=== PATIENT | female | born 1970 | race African-American/Black ===

== ENCOUNTER 2023-07-01 16:12 | Inpatient (IN) | payer OTHER ==
[2023-07-01 16:59] LABS: Absolute Lymphocytes (CBC) 1.5 K/uL (0.7-4.9); Hematocrit 40.5 % (36.0-45.0); Lymphocytes % 18.2 % (15.3-44.8); MCV 75.3 fL (80-100); Platelets 340 thou/uL (152-406); RBC Red Blood Cell Count 5.37 M/uL (3.86-4.86)
[2023-07-01 17:14] LABS: Albumin 3.2 g/dL (3.4-5.0); Bilirubin Total 0.7 mg/dL (0.2-1.0); Protein, Total 7.7 g/dL (6.4-8.2)
[2023-07-01 17:15] LABS: Potassium 4.2 mEq/L (3.5-5.1)
--- NOTE | 2023-07-01 18:21 | RAD REPORT ---
EXAM DESCRIPTION: CT - Abdomen Pelvis W Contrast - 07/01/2023 6:00 pm CLINICAL HISTORY: Abdominal pain COMPARISON: none. TECHNIQUE: Computed axial tomography of the abdomen pelvis was obtained. 100 cc Isovue-300 was admin istered intravenously. Oral contrast was not requested which limits evaluation of bowel and appendix All CT scans are performed using dose optimization technique as appropriate and may include automated exposure control or mA/KV adjustment according to patient size. FINDINGS: Some images are degraded by patient motion artifact Left lobe of the liver is prominent. The spleen, pancreas, adrenal and left kidney appear unremarkable. Small right renal cyst There is no evidence of diverticulitis. A normal appendix Hysterectomy. No adnexal mass A moderate hiatal hernia. The wall of several loops of jejunum appear thickened Marked osteoarthritis right hip Air within the vagina IMPRESSION: Thickening of the wall of several loops of jejunum may indicate inflammation Air within the vagina can be insignificant. Infection can also result in this appearance
[2023-07-01] MEDS ORDERED: ONDANSETRON 4 MG/2 ML VIAL ONE ×2 (18:34→22:44)
[2023-07-01] MEDS ORDERED: KETOROLAC 30 MG/ML INJ ONE (18:38)
[2023-07-01] MEDS ORDERED: METOCLOPRAMIDE 10 MG/2mL INJ ONE (19:04)
[2023-07-01] MEDS ORDERED: DIPHENHYDRAMINE 50 MG/ML VIAL ONE (19:04)
--- NOTE | 2023-07-01 19:53 | ER ---
Nurse's Notes [facility] Name: Korina Nolen Age: 52 yrs Sex: Female : 1970 Arrival Date: 07/01/2023 Time: 16:12 Bed 13 Private MD: Diagnosis: Intractable nausea and vomiting;Hypotension Presentation: 07/01 16:21 Chief complaint: EMS states: abdominal pain, nausea, vomiting and diarrhea x1day. cp4 Coronavirus screen: Client denies travel out of the [place] in the last 14 days. At this time, the client does not indicate any symptoms associated with coronavirus-19. Ebola Screen: Patient negative for fever greater than or equal to 101.5 degrees Fahrenheit, and additional compatible Ebola Virus Disease symptoms Patient denies exposure to infectious person. Patient denies travel to an Ebola-affected area in the 21 days before illness onset. No symptoms or risks identified at this time. Initial Sepsis Screen: Does the patient meet any 2 criteria? No. Patient's initial sepsis screen is negative. Does the patient have a suspected source of infection? No. Patient's initial sepsis screen is negative. Risk Assessment: Do you want to hurt yourself or someone else? Patient reports no desire to harm self or others. Onset of symptoms was July 01, 2023. 16:21 Method Of Arrival: EMS: [facility] 16:21 Acuity: JULIANA 3 cp4 Triage Assessment: 16:24 General: Appears in no apparent distress. Pain: Complains of pain in abdomen. 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 - Social history:: Smoking status: Patient denies any tobacco usage or history of. Screenin:28 [facility] ED Fall Risk Assessment (Adult) History of falling in the last 3 months, cp4 including since admission No falls in past 3 months (0 pts) Confusion or Disorientation No (0 pts) Intoxicated or Sedated No (0 pts) Impaired Gait No (0 pts) Mobility Assist Device Used No (0 pt) Altered Elimination No (0 pt) Score/Fall Risk Level 0 - 2 = Low Risk Oriented to surroundings, Maintained a safe environment, Educated pt \T\ family on fall prevention, incl call for assistance when getting out of bed, Assessed \T\ reinforced patient's understanding of fall precautions, Hourly rounding (assess needs \T\ fall precautionary measures) done. Abuse screen: Denies threats or abuse. Nutritional screening: No deficits noted. Tuberculosis screening: No symptoms or risk factors identified. Assessment: 16:28 General: Appears in no apparent distress. Behavior is calm, cooperative, appropriate cp4 for age. GI: Reports diarrhea, nausea, vomiting. Vital Signs: 16:10 BP 101 / 87; Pulse 80; Resp 18; Pulse Ox 100% ; cp4 16:21 BP 101 / 87; Pulse 80; Resp 18; Pulse Ox 100% ; cp4 17:30 BP 96 / 83; Pulse 79; Resp 18; Pulse Ox 96% ; cp4 18:30 BP 111 / 73; Pulse 76; Resp 18; Pulse Ox 97% ; cp4 19:30 BP 130 / 89; Pulse 83; Resp 18; Pulse Ox 97% ; cp4 20:30 BP 130 / 89; Pulse 83; Resp 18; Pulse Ox 98% ; cp4 ED Course: 16:16 Patient arrived in ED. ms3 16:16 Jose Waite DO is Attending Physician. ms3 16:18 Radiology exam delayed due to IV insertion attempt and/or patient not having nj appropriate IV at this time. 16:18 Radiology exam delayed due to lab results not completed at this time. (BUN/Creatinine). nj 16:18 Radiology exam delayed due to test not completed at this time. nj 16:21 Maria De Jesus Sparks is Primary Nurse. cp4 16:24 Triage completed. cp4 16:24 Arm band placed on right wrist. Patient placed in the treatment room, on a stretcher. cp4 16:28 Bed in low position. Call light in reach. Side rails up X 1. Provided Education on: cp4 abdominal pain, nausea, vomiting, and diarrhea. 16:28 Maintain EMS IV. Dressing intact. Good blood return noted. Site clean \T\ dry. Gauge \T\ cp 4 site: 20G L wrist. 17:10 Radiology exam delayed due to lab results not completed at this time. (BUN/Creatinine). nj 17:55 Attending Physician role handed off by Jose Waite DO ms3 17:55 Kelton Salazar MD is Attending Physician. ms3 18:01 CT Abd/Pelvis - IV Contrast Only In Process Unspecified. EDMS 19:52 Gretel Vance MD is Hospitalizing Provider. rt 22:00 No provider procedures requiring assistance completed. Patient admitted, IV remains in km8 place. Administered Medications: 18:42 Drug: Ondansetron IVP 4 mg IVP once; over 2 minutes Route: IVP; Site: left wrist; cp4 20:50 Follow up: Response: No adverse reaction cp4 18:42 Drug: Ketorolac IVP 15 mg IVP once Route: IVP; Site: left wrist; cp4 20:50 Follow up: Response: No adverse reaction cp4 19:08 Drug: metoCLOPramide IVP 10 mg IVP once; over 1 to 2 minutes Route: IVP; Site: left cp4 wrist; 20:50 Follow up: Response: No adverse reaction cp4 19:08 Drug: diphenhydrAMINE IVP 25 mg IVP once Route: IVP; Site: left wrist; cp4 20:50 Follow up: Response: No adverse reaction cp4 20:02 Drug: Promethazine IVP 12.5 mg IVP once Route: IVP; Site: left wrist; cp4 20:50 Follow up: Response: No adverse reaction cp4 Medication: 16:28 VIS not applicable for this client. cp4 Outcome: 19:52 Decision to Hospitalize by Provider. rt 22:00 Admitted to ER Hold. Please see [facility] for further documentation. km8 22:00 Condition: stable 22:00 Instructed on the need for admit, Demonstrated understanding of instructions, 07/02 01:13 Patient left the ED. km8 Signatures: Dispatcher [employer] EDMS Richy Barragan Marcus, DO DO ms3 Kelton Salazar MD MD rt Maria De Jesus Sparks cp4 Oxana Chan, DONG RN km8
--- NOTE | 2023-07-01 19:53 | EDPHYS ---
Physician Documentation [facility] Name: Korina Nolen Age: 52 yrs Sex: Female : 1970 Arrival Date: 07/01/2023 Time: 16:12 Bed 13 Private MD: ED Physician Kelton Salazar HPI: 07/01 16:38 This 52 yrs old Black Female presents to ER via EMS with complaints of Abdominal Pain. ms3 16:38 52-year-old female presents to the emergency department for right lower quadrant ms3 abdominal pain that has been ongoing for 1 day. Patient endorses nausea, vomiting, diarrhea. Patient states her pain is currently a 9/10. EMS notes patient's initial blood pressure 72/43 with a blood glucose of 125. Patient's temperature was measured at 97.9. EMS administered IV Tylenol of and Zofran in route.. 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 - Social history:: Smoking status: Patient denies any tobacco usage or history of. ROS: 16:38 Constitutional: Negative for fever, and chills. Neck: Negative for injury, pain, and ms3 swelling, Cardiovascular: Negative for chest pain, and palpitations. Respiratory: Negative for shortness of breath, cough, wheezing, and pleuritic chest pain, 16:38 MS/Extremity: Negative for injury and deformity, Skin: Negative for injury, rash, and discoloration, Neuro: Negative for headache, weakness, numbness, tingling. 16:38 Abdomen/GI: Positive for abdominal pain, nausea, vomiting, and diarrhea, Exam: 16:38 Constitutional: This is a well developed, well nourished patient who is awake, alert, ms3 and in no acute distress. Head/Face: Normocephalic, atraumatic. Chest/axilla: Normal chest wall appearance and motion. Nontender with no deformity. Cardiovascular: Regular rate and rhythm with a normal S1 and S2. No gallops, murmurs, or rubs. Normal PMI, no JVD. No pulse deficits. Respiratory: Lungs have equal breath sounds bilaterally, clear to auscultation and percussion. No rales, rhonchi or wheezes noted. No increased work of breathing, no retractions or nasal flaring. Abdomen/GI: Soft, non-tender, with normal bowel sounds. No distension or tympany. No guarding or rebound. No evidence of tenderness throughout. Skin: Warm, dry with normal turgor. Normal color with no rashes, no lesions, and no evidence of cellulitis. MS/ Extremity: Pulses equal, no cyanosis. Neurovascular intact. Full, normal range of motion. Vital Signs: 16:10 BP 101 / 87; Pulse 80; Resp 18; Pulse Ox 100% ; cp4 16:21 BP 101 / 87; Pulse 80; Resp 18; Pulse Ox 100% ; cp4 17:30 BP 96 / 83; Pulse 79; Resp 18; Pulse Ox 96% ; cp4 18:30 BP 111 / 73; Pulse 76; Resp 18; Pulse Ox 97% ; cp4 19:30 BP 130 / 89; Pulse 83; Resp 18; Pulse Ox 97% ; cp4 20:30 BP 130 / 89; Pulse 83; Resp 18; Pulse Ox 98% ; cp4 MDM: 16:16 Patient medically screened. ms3 16:40 Differential diagnosis: appendicitis, bowel obstruction, non-specific abd pain. ms3 17:54 Transition of care: After a detail discussion of the patient's case, care is ms3 transferred to Kelton Salazar MD. 20:18 Data reviewed: vital signs, nurses notes, lab test result(s), radiologic studies. rt Consideration of Admission/Observation Patient was admitted/placed on observation. Management of patient was discussed with the following: Hospitalist: Agrees to admit. I considered the following discharge prescriptions or medication management in the emergency department Medications were administered in the Emergency Department. See MAR. Independent interpretation of the following test(s) in the Emergency Department CT Scan: My interpretation is No bowel obstruction syndrome interpretation of CT scan images. Counseling: I had a detailed discussion with the patient and/or guardian regarding the historical points, exam findings, and any diagnostic results supporting the discharge/admit diagnosis, lab results, radiology results, the need for further work-up and treatment in the hospital. 07/01 16:17 Order name: CBC with Diff; Complete Time: 17:21 ms3 07/01 16:17 Order name: CMP; Complete Time: 17:21 ms3 07/01 16:17 Order name: Lipase; Complete Time: 17:21 ms3 07/01 21:38 Order name: Urinalysis w/ reflexes EDMS 07/01 21:38 Order name: CBC with Automated Diff EDMS 07/01 21:38 Order name: CBC with Automated Diff EDMS 07/01 21:38 Order name: Comprehensive Metabolic Panel EDMS 07/01 21:38 Order name: Comprehensive Metabolic Panel EDMS 07/01 21:38 Order name: Magnesium EDMS 07/01 21:38 Order name: Magnesium EDMS 07/01 16:17 Order name: CT Abd/Pelvis - IV Contrast Only; Complete Time: 18:25 ms3 07/01 16:17 Order name: IV Saline Lock; Complete Time: 16:36 ms3 07/01 16:17 Order name: Labs collected and sent; Complete Time: 16:36 ms3 Administered Medications: 18:42 Drug: Ondansetron IVP 4 mg IVP once; over 2 minutes Route: IVP; Site: left wrist; cp4 20:50 Follow up: Response: No adverse reaction cp4 18:42 Drug: Ketorolac IVP 15 mg IVP once Route: IVP; Site: left wrist; cp4 20:50 Follow up: Response: No adverse reaction cp4 19:08 Drug: metoCLOPramide IVP 10 mg IVP once; over 1 to 2 minutes Route: IVP; Site: left cp4 wrist; 20:50 Follow up: Response: No adverse reaction cp4 19:08 Drug: diphenhydrAMINE IVP 25 mg IVP once Route: IVP; Site: left wrist; cp4 20:50 Follow up: Response: No adverse reaction cp4 20:02 Drug: Promethazine IVP 12.5 mg IVP once Route: IVP; Site: left wrist; cp4 20:50 Follow up: Response: No adverse reaction cp4 Disposition Summary: 07/01/23 19:52 Hospitalization Ordered Notes: Hospitalization Status: Observation rt Provider: Gretel Vance rt Condition: Stable rt Problem: new rt Symptoms: have improved rt Bed/Room Type: Standard rt Location: Telemetry/MedSurg (observation)(07/02/23 00:19) rv1 Room Assignment: 220(07/02/23 00:19) rv1 Diagnosis - Intractable nausea and vomiting rt - Hypotension rt Forms: - Medication Reconciliation Form rt - SBAR form rt - Leadership Thank You Letter rt Signatures: Dispatcher [employer] EDMS Jose Waite, DO DO ms3 Kelton Salazar MD MD rt Tereza Carr rv1 Maria De Jesus Sparks cp4 Corrections: (The following items were deleted from the chart) 20:57 19:52 Telemetry/MedSurg (observation) rt rv1 20:57 19:52 rt rv1 07/02 00:19 07/01 20:57 [facility] ER HOLD rv1 rv1 07/02 00:19 07/01 20:57 ERHOLD- rv1 rv1
[2023-07-01] MEDS ORDERED: PROMETHAZINE INJ 25 MG/ML AMP ONE (19:59)
[2023-07-01] MEDS ORDERED: D5.45NS W/KCL 20MEQ 1,000 ML IV ONE (22:43)
[2023-07-01] MEDS ORDERED: Oxycodone HCl/Acetaminophen 5/325 MG TAB ONE (22:43)
[2023-07-01] MEDS: D5.45NS W/KCL 20MEQ 1,000 ML IV SCH (22:50)
[2023-07-01] MEDS: ONDANSETRON 4 MG/2 ML VIAL IV PRN (22:50)
[2023-07-01] MEDS: Oxycodone HCl/Acetaminophen 5/325 MG TAB PO PRN (23:00)
--- NOTE | 2023-07-02 00:01 | P.HP ---
Patient History Date of Service: 07/01/23 Reason for admission: Intractable nausea and vomiting History of Present Illness: 52-year-old female with a history of schizophrenia and opioid addiction was brought to the ED with acute episode of nausea, vomiting and diarrhea. She also complains of right lower quadrant pain that started today. Patient reports up to 25 episodes of bilious emesis and nonbloody watery diarrhea. Abdominal pain is nonradiating and associated with cramping. When EMS arrived her blood pressure was 72/43, BP improved with 1 L bolus. Initial BP in the ED was 101/87 and patient was given Reglan, Benadryl, Toradol and Zofran but continues to have bilious emesis. Her sisters were at bedside and stated that patient is addicted to oxycodone which patient confirmed. They would like to start her on treatment for substance abuse. She currently takes 10 mg of oxycodone every 4 hours which she states she has been taking for the last 6 to 9 months. Apparently if patient runs out of her medications quicker than expected she start tomorrow morning to buy oxycodone on the street. She ran out of her prescription 2 days ago but she is not due for new prescription for the next 10 days. Currently she complains of right hip pain and she is quite restless and irritable with some runny nose. CT abdomen and pelvis is negative for any acute finding. Labs are unremarkable. Allergies No Known Allergies Allergy (Unverified 07/01/23 22:23) Review of Systems 10-point ROS is otherwise unremarkable Physical Examination - Vital Signs Blood Pressure: 101/87 Pulse: 80 Respirations: 16 Pulse Ox (%): 97 - Physical Exam General: Alert, Oriented x3, Mild distress HEENT: Atraumatic, Normocephalic, PERRLA, Mucous membr. moist/pink, EOMI Neck: Supple, JVD not distended Respiratory: Clear to auscultation bilaterally, Normal air movement Cardiovascular: Regular rate/rhythm, Normal S1 S2 Gastrointestinal: Hyperactive, Tenderness Musculoskeletal: No swelling, No erythema, No tenderness Integumentary: No rashes Neurological: Normal gait, Normal speech, Normal strength at 5/5 x4 extr, Sensation intact - Studies Laboratory Data (last 24 hrs) 07/01/23 07/01/23 16:34 16:34 WBC 8.30 Hgb 13.2 Hct 40.5 Plt Count 340 Sodium 138 Potassium 4.2 BUN 17 Creatinine 0.97 Glucose 132 H Total Bilirubin 0.7 AST 26 ALT 14 Alkaline Phosphatase 70 Lipase 38 Assessment and Plan - Plan Intractable nausea and vomiting Hypotension, resolved Acute opioid withdrawal Opioid addiction Microcytosis History of schizophrenia Plan Continue IV fluid maintenance, antiemetics and PPI N.p.o. and advance diet as tolerated Oxycodone 10 mg every 4 hours Consult social servises to assist with substance abuse placement - Advance Directives Does patient have a Living Will: No Does patient have a Durable POA for Healthcare: No
[2023-07-02] MEDS ORDERED: SODIUM CHLORIDE 0.9% 10ML INJ IV PRN (00:06)
[2023-07-02 00:25] VITALS: BMI 22.1
[2023-07-02 01:35] VITALS: O2SAT 98
[2023-07-02 05:32] LABS: Absolute Lymphocytes (CBC) 2.3 K/uL (0.7-4.9); Hematocrit 39.2 % (36.0-45.0); MCV 74.5 fL (80-100); MPV 8.3 fL (7.6-11.3); Platelets 361 thou/uL (152-406); RBC Red Blood Cell Count 5.27 M/uL (3.86-4.86)
[2023-07-02 05:45] LABS: Albumin 3.6 g/dL (3.4-5.0); Bilirubin Total 0.7 mg/dL (0.2-1.0); Magnesium 2.2 mg/dL (1.6-2.4); Potassium 3.4 mEq/L (3.5-5.1); Protein, Total 8.3 g/dL (6.4-8.2)
[2023-07-02] MEDS: POTASSIUM CL SA 10 MEQ TAB PO ONE (09:46)
[2023-07-02] MEDS: PANTOPRAZOLE 40 MG INJ IVP SCH (09:46)
[2023-07-02 10:17] LABS: Specific Gravity 1.017 (1.005-1.030); Urine Bacteria <20 /HPF (<20); Urine Bilirubin NEGATIVE (Negative); Urine Blood Trace (Negative); Urine Clarity Extremely Turbid (Clear); Urine Color Light-Yellow (Yellow); Urine Glucose NEGATIVE (Negative); Urine Mucus 1+ /HPF (None Seen); Urine Protein NEGATIVE (Negative); Urine Urobilinogen Normal (Normal)
[2023-07-02] MEDS: HALOPERIDOL LACT 5 MG/ML INJ IV PRN (17:49)
[2023-07-02] MEDS: NICOTINE 21 MG/PAT TD SCH (17:51)
[2023-07-02] MEDS: MORPHINE 2 MG/ML SYR IV ONE (18:26)
[2023-07-02] MEDS: HALOPERIDOL LACT 5 MG/ML INJ IV ONE (18:36)
--- NOTE | 2023-07-02 18:58 | P.PN ---
Subjective Date of Service: 07/02/23 Chief Complaint: Intractable nausea and vomiting Patient tolerated diet. She denies any abdominal pain. She is currently ambulatory. She seems to be exhibiting psychosis with tangential speech and apprehensive stating that she wants to go home. Physical Examination - Vital Signs Temperature: 97.9 F Blood Pressure: 115/94 Pulse: 92 Respirations: 17 Pulse Ox (%): 97 - Physical Exam General: In no apparent distress, Oriented x3 Neck: JVD not distended Respiratory: Clear to auscultation bilaterally, Normal air movement Cardiovascular: No edema, Regular rate/rhythm, Normal S1 S2 Gastrointestinal: Normal bowel sounds, Soft and benign, Non-distended, No tenderness Musculoskeletal: No swelling Integumentary: No rashes, No cyanosis Neurological: Normal strength at 5/5 x4 extr, Other (Talkative, tangential speech.) Assessment And Plan - Plan Intractable nausea and vomiting Hypotension, resolved Acute opioid withdrawal Opioid addiction Microcytosis Schizophrenia with psychotic features Plan Nurse report patient got agitated and mentioned she feels like killing herself. Patient denied any suicidal ideation. She told me she is not suicidal and rather stated she feels like dying. She also stated, she made the same statement when she came to the emergency department very sick and in severe pain and that she does not mean she wants to kill herself. She appears to be exhibiting some psychotic features with tangential speech,, apprehensive and agitated and wants to go home. Patient is due for her Invega injection tomorrow. She received the Invega from [facility] Trial of IV Haldol. IV morphine and oxycodone as needed for pain. Advance diet as tolerated rn medical inpatient services following to provide information for pain management and addiction programs referral. I also discussed with her and her family the need for her to see an orthopedic surgeon to evaluate her for surgical treatment of his severe hip osteoarthritis. Recommending one-to-one watch overnight. [facility] behavioral health evaluation in a.m.
--- NOTE | 2023-07-03 12:58 | P.DS ---
Admission Date: 07/01/23 Discharge Date: 07/03/23 Disposition: ROUTINE DISCHARGE Reason for Admission: Intractable nausea and vomiting Brief History of Present Illness: 52-year-old female with a history of schizophrenia and opioid addiction was brought to the ED with acute episode of nausea, vomiting and diarrhea. She also complained of right lower quadrant pain.. Patient reporeds up to 25 episodes of bilious emesis and nonbloody watery diarrhea. When EMS arrived her blood pressure was 72/43, BP improved with 1 L bolus. Initial BP in the ED was 101/87 and patient was given Reglan, Benadryl, Toradol and Zofran but continued to have bilious emesis. Her sisters were at bedside and stated that patient is addicted to oxycodone which patient confirmed. They would like to start her on treatment for substance abuse. She currently takes 10 mg of oxycodone every 4 hours which she states she has been taking for the last 6 to 9 months. She ran out of her prescription 2 days prior to presentation and 10 days short to the next refill. She has been taking the oxycodone for right hip pain related to osteoarthritis. She has refused orthopedic evaluation for surgery in the past. Patient was hospitalized for further management. Hospital Course: Diagnosis Intractable nausea and vomiting Hypovolemic shock Acute opioid withdrawal Opioid addiction Microcytosis Schizophrenia with psychotic features Hospital course Patient was admitted to the medical floor and treated with supportive measures including IV hydration. She was placed on her home dose oxycodone. Patient's symptoms resolved. Nausea and vomiting resolved, she tolerated liquid and solid diets. Nurse reported on 07/02/2023 patient got agitated and mentioned she feels like killing herself. Patient denied any suicidal ideation to me. She told me she is not suicidal and rather stated she feels like dying and that she made the same comment when she came to the emergency department very sick and in severe pain and that she does not mean she wants to kill herself. She exhibited some psychotic features with tangential speech, was apprehensive and agitated wanting to go home. Patient is due for her Invega injection on 07/03. She receives the Invega from [facility] She was given IV Haldol Also placed on IV morphine and oxycodone as needed for pain. Patient seen and evaluated by [facility] who confirmed patient is not not suicidal and recommended discharge and follow-up at the [facility] office for her Invega dose today. [facility] also offered to refer her to an seafood technology specialist. I also discussed with her and her family the need for her to see an orthopedic surgeon to evaluate her for surgical treatment of his severe hip osteoarthritis. Patient is discharged in the care of family. She is prescribed oxycodone for a few days and advised family that the administration of the oxycodone should be supervised. Vital Signs/Physical Exam: Temp Pulse Resp BP Pulse Ox 98.2 F 95 H 18 110/87 98 07/02/23 20:00 07/02/23 20:00 07/03/23 09:56 07/02/23 20:00 07/03/23 09:56 General: Alert, In no apparent distress, Oriented x3 HEENT: Mucous membr. moist/pink Neck: JVD not distended Respiratory: Clear to auscultation bilaterally, Normal air movement Cardiovascular: No edema, Regular rate/rhythm, Normal S1 S2, No murmurs Gastrointestinal: Normal bowel sounds, Soft and benign, Non-distended, No tenderness Musculoskeletal: No swelling Integumentary: No rashes, No cyanosis Neurological: Normal speech, Normal strength at 5/5 x4 extr, Cranial nerves 3-12 intact Laboratory Data at Discharge: WBC 12.10 thou/uL (4.3-10.9) H 07/02/23 04:47 Hgb 12.9 g/dL (12.0-15.0) 07/02/23 04:47 Hct 39.2 % (36.0-45.0) 07/02/23 04:47 Plt Count 361 thou/uL (152-406) 07/02/23 04:47 Sodium 139 mEq/L (136-145) 07/03/23 08:15 Potassium 4.0 mEq/L (3.5-5.1) D 07/03/23 08:15 BUN 16 mg/dL (7-18) 07/03/23 08:15 Creatinine 0.77 mg/dL (0.55-1.02) 07/03/23 08:15 Glucose 97 mg/dL (74-106) 07/03/23 08:15 Magnesium 2.2 mg/dL (1.6-2.4) 07/02/23 04:47 Total Bilirubin 0.7 mg/dL (0.2-1.0) 07/02/23 04:47 AST 10 U/L (15-37) L 07/02/23 04:47 ALT 17 U/L (13-56) 07/02/23 04:47 Alkaline Phosphatase 70 U/L (45-117) 07/02/23 04:47 Lipase 38 U/L (13-75) 07/01/23 16:34 Home Medications: Naloxone HCl 4 mg NS PRN #1 spray 07/03/23 Oxycodone HCl/Acetaminophen [Oxycodone-Acetaminophen 10-325] 1 each PO TID #15 tab 07/03/23 New Medications: Naloxone HCl 4 mg NS PRN #1 spray Oxycodone HCl/Acetaminophen [Oxycodone-Acetaminophen 10-325] 1 each PO TID #15 tab Physician Discharge Instructions: [facility] will give you referral to see addiction medicine specialist. You will need to see an orthopedic physician to evaluate you for possible surgery for your severe osteoarthritis. Diet: Regular Activity: Ad chuck Followup: NONE,NONE [Primary Care Provider] - Danny Moss MD [OUTSIDE PHYSICIAN] - 1 Week Time spent managing pt's care (in minutes): 36
[2023-07-03 15:57] VITALS: BP 109/75; TEMP 97.4
== END 2023-07-03 13:12 | disposition home or self-care (01) | DRG 896 ==
LOC: ER 16:12 → ERHOLD 21:33 → 2ND 07-02 00:19
PROVIDERS: ADMIT Internal Medicine; ATTEND Internal Medicine
DX: F11.23 Opioid dependence with withdrawal (principal); R57.1 Hypovolemic shock; I95.9 Hypotension, unspecified; F29 Unspecified psychosis not due to a substance or known physiological condition; F20.9 Schizophrenia, unspecified; M16.11 Unilateral primary osteoarthritis, right hip
CPT/HCPCS: 36415; 74177; 80048; 80053; 81001; 83540; 83690; 83735; 84466; 85025; 96374; 96375; 99285; C9113; J1200; J1630; J2270; J2405; J2550; J2765; Q9967

== ENCOUNTER → 2023-07-30 | Emergency (ER) | payer OTHER ==
--- OUTSIDE RECORDS SUMMARY | 2023-07-30 12:11 | XMS REPORT | Continuity of Care Document ---
Author Name Unknown Address [address] [facility] [address] [place] [address] [facility] thconnect Address [address] [facility] [address] [place] [address] Care Team Providers Care Wallcovering Hanger Name Role Phone Unavailable Unavailable Unavailable Encounters Start Date/Time End Date/Time Encounter Type Admission Type Attending Clinicians Care Facility Care Department Encounter ID Source 2023-05-23 17:49:39 2023-05-23 17:49:39 Outpatient SFA SFA [id number] Dewayne Romo 2023-01-08 09:43:41 2023-01-08 09:43:41 Outpatient SFA SFA [id number] Dewayne Romo 2022-12-11 10:42:21 2022-12-11 10:42:21 Outpatient SFA SFA [id number] Dewayne Romo 2022-07-22 17:08:42 2022-07-22 17:08:42 Outpatient SFA SFA [id number] Dewayne Romo Results Test Description Test Time Test Comments Results Result Co mments Source LIPID [id number] 03:43:19* Test Item Value Reference Range Interpretation Comme nts CHOLESTEROL (test code = 2210) 179 MG/DL <200 TRIGLYCERIDES (test code = 2232) 73 MG/DL <150 HDL CHOLESTEROL (test code = 2220) 74 MG/DL >39 CALC LDL CHOL (test code = 2237) 89 MG/DL <100 NOTE: CALCULATED LDL IS BASED ON MARBIN-URIAS METHOD WHICHINCLUDES ADJUSTABLE TRIGLYCERIDE:VLDL CHOLESTEROL RATIO.THIS FACTOR VARIES BY MEASURED TRIGLYCERIDE AND NON-HDLCHOLESTEROL CONCENTRATIONS WITH INCREASED CALCULATED LDL SEENIN HIGHER TRIGLYCERIDE OR LOWER NON-HDL SPECIMENS. FOR MOREINFORMATION, SEE CLIENT ANNOUNCEMENT AT [email or web address] RISK RATIO LDL/HDL (test code = 2237) 1.20 RATIO <3.22 COMPREHENSIVE METABOLIC [id number] 03:43:19* Test Item Value Reference Range Interpretation Comme nts GLUCOSE (test code = 2216) 67 MG/DL 70-99 L BUN (test code = 2207) 10 MG/DL 6-20 CREATININE (test code = 2213) 0.74 MG/DL 0.60-1.30 eGFR (2020 CKD-EPI) (test code = 82275) 97 ML/MIN/1.73 >60 CALC BUN/CREAT (test code = 2234) 14 RATIO 6-28 SODIUM (test code = 2230) 143 MEQ/L 133-146 POTASSIUM (test code = 2227) 4.3 MEQ/L 3.5-5.4 CHLORIDE (test code = 2214) 107 MEQ/L 95-107 CARBON DIOXIDE (test code = 2205) 26 MEQ/L 19-31 CALCIUM (test code = 2208) 9.3 MG/DL 8.5-10.5 PROTEIN, TOTAL (test code = 2228) 7.1 G/DL 6.1-8.3 ALBUMIN (test code = 2200) 4.2 G/DL 3.5-5.2 CALC GLOBULIN (test code = 2240) 2.9 G/DL 1.9-3.7 CALC A/G RATIO (test code = 2233) 1.4 RATIO 1.0-2.6 BILIRUBIN, TOTAL (test code = 2206) 0.2 MG/DL See_Comment [Automated me ssage] The system which generated this result transmitted reference range: <=1.2. The reference range was not used to interpret this result as normal/abnormal. ALKALINE PHOSPHATASE (test code = 2203) 60 U/L 40-133 AST (test code = 2217) 19 U/L 9-40 ALT (test code = 2218) 14 U/L 5-40 HEMOGLOBIN [id number] 01:58:17* Test Item Value Reference Range Interpretation Comme nts HEMOGLOBIN A1c (test code = 68421) 5.3 % 4.2-5.6 CBC W/AUTO DIFF WITH [id number] 01:24:22* Test Item Value Reference Range Interpretation Comme nts WBC (test code = 1001) 10.2 K/UL 3.5-11.0 RBC (test code = 1002) 5.12 M/UL 3.80-5.40 HEMOGLOBIN (test code = 1003) 12.6 G/DL 11.5-15.5 HEMATOCRIT (test code = 1004) 40.4 % 34.0-45.0 MCV (test code = 1005) 78.9 fL 80.0-99.0 L MCH (test code = 1006) 24.6 PG 25.0-33.0 L MCHC (test code = 1007) 31.2 G/DL 31.0-36.0 RDW (test code = 1038) 14.9 % 11.5-15.0 NEUTROPHILS (test code = 1008) 49.7 % LYMPHOCYTES (test code = 1010) 41.3 % MONOCYTES (test code = 1011) 7.2 % EOSINOPHILS (test code = 1012) 1.0 % BASOPHILS (test code = 1013) 0.5 % IMMATURE GRANULOCYTES (test code = 1036) 0.3 % NUCLEATED RBCS (test code = 1065) 0.0 /100 WBC'S See_Comment [Automated messa ge] The system which generated this result transmitted reference range: 0.0. The reference range was not used to interpret this result as normal/abnormal. PLATELET COUNT (test code = 1015) 371 K/UL 130-400 ABSOLUTE NEUTROPHILS (test code = 1066) 5.09 K/UL 1.50-7.50 ABSOLUTE LYMPHOCYTES (test code = 1067) 4.22 K/UL 1.00-4.00 H ABSOLUTE MONOCYTES (test code = 1068) 0.74 K/UL 0.20-1.00 ABSOLUTE EOSINOPHILS (test code = 1040) 0.10 K/UL 0.00-0.50 ABSOLUTE BASOPHILS (test code = 1069) 0.05 K/UL 0.00-0.20 ABS IMMATURE GRANULOCYTES (test code = 1020) 0.03 K/UL 0.00-0.10 ABS NUCLEATED RBCS (test code = 37518) 0.00 K/UL 0.00-0.11 COMPREHENSIVE METABOLIC [id number] 07:58:05* Test Item Value Reference Range Interpretation Comme nts GLUCOSE (test code = 2217) 111 MG/DL 70-99 H BUN (test code = 2207) 11 MG/DL 6-20 CREATININE (test code = 2213) 0.67 MG/DL 0.60-1.30 eGFR (2020 CKD-EPI) (test code = ) 106 ML/MIN/1.73 >60 CALC BUN/CREAT (test code = 2234) 16 RATIO 6-28 SODIUM (test code = 2230) 144 MEQ/L 133-146 POTASSIUM (test code = 2227) 3.9 MEQ/L 3.5-5.4 CHLORIDE (test code = 2214) 107 MEQ/L 95-107 CARBON DIOXIDE (test code = 2205) 25 MEQ/L 19-31 CALCIUM (test code = 2208) 9.3 MG/DL 8.5-10.5 PROTEIN, TOTAL (test code = 2228) 7.2 G/DL 6.1-8.3 ALBUMIN (test code = 2200) 4.2 G/DL 3.5-5.2 CALC GLOBULIN (test code = 2239) 3.0 G/DL 1.9-3.7 CALC A/G RATIO (test code = 2233) 1.4 RATIO 1.0-2.6 BILIRUBIN, TOTAL (test code = 2206) 0.5 MG/DL See_Comment [Automated me ssage] The system which generated this result transmitted reference range: <=1.2. The reference range was not used to interpret this result as normal/abnormal. ALKALINE PHOSPHATASE (test code = 2203) 61 U/L 40-130 AST (test code = 2217) 18 U/L 9-40 ALT (test code = 2218) 18 U/L 5-40 LIPID [id number] 07:58:05* Test Item Value Reference Range Interpretation Comme nts CHOLESTEROL (test code = 2209) 189 MG/DL <200 TRIGLYCERIDES (test code = 223) 79 MG/DL <150 HDL CHOLESTEROL (test code = 0) 79 MG/DL >39 CALC LDL CHOL (test code = 2236) 93 MG/DL <100 NOTE: CALCULATED LDL IS BASED ON MARBIN-URIAS METHOD WHICHINCLUDES ADJUSTABLE TRIGLYCERIDE:VLDL CHOLESTEROL RATIO.THIS FACTOR VARIES BY MEASURED TRIGLYCERIDE AND NON-HDLCHOLESTEROL CONCENTRATIONS WITH INCREASED CALCULATED LDL SEENIN HIGHER TRIGLYCERIDE OR LOWER NON-HDL SPECIMENS. FOR MOREINFORMATION, SEE CLIENT ANNOUNCEMENT AT [email or web address] /CalcLDL-C RISK RATIO LDL/HDL (test code = 2238) 1.18 RATIO <3.22 TSH, THIRD [id number] 06:47:53* Test Item Value Reference Range Interpretation Comme nts TSH, THIRD GENERATION (test code = 2821) 1.930 UIU/ML 0.400-4.100 UNLESS OTHERWISE INDICATED, ALL TESTING PERFORMED [facility] [address] [place] [id number] INSPECTOR REPAIRER SANDSTONE: MARY BOWEN M.D. CLIA NUMBER [id number] [facility] [place]. [id number] HEMOGLOBIN [id number] 03:55:14* Test Item Value Reference Range Interpretation Comme nts HEMOGLOBIN A1c (test code = 36149) 5.5 % 4.2-5.6 CBC W/AUTO DIFF WITH [id number] 03:42:47* Test Item Value Reference Range Interpretation Comme nts WBC (test code = 1001) 6.7 K/UL 3.5-11.0 RBC (test code = 1002) 4.78 M/UL 3.80-5.40 HEMOGLOBIN (test code = 1003) 11.5 G/DL 11.5-15.5 HEMATOCRIT (test code = 1004) 36.1 % 34.0-45.0 MCV (test code = 1005) 75.5 fL 80.0-99.0 L MCH (test code = 1006) 24.1 PG 25.0-33.0 L MCHC (test code = 1007) 31.9 G/DL 31.0-36.0 RDW (test code = 1038) 14.5 % 11.5-15.0 NEUTROPHILS (test code = 1008) 45.7 % LYMPHOCYTES (test code = 1010) 44.7 % MONOCYTES (test code = 1011) 7.5 % EOSINOPHILS (test code = 1012) 1.4 % BASOPHILS (test code = 1013) 0.5 % IMMATURE GRANULOCYTES (test code = 1036) 0.2 % NUCLEATED RBCS (test code = 1065) 0.0 /100 WBC'S See_Comment [Automated messa ge] The system which generated this result transmitted reference range: 0.0. The reference range was not used to interpret this result as normal/abnormal. PLATELET COUNT (test code = 1015) 375 K/UL 130-400 ABSOLUTE NEUTROPHILS (test code = 1066) 3.05 K/UL 1.50-7.50 ABSOLUTE LYMPHOCYTES (test code = 1067) 2.97 K/UL 1.00-4.00 ABSOLUTE MONOCYTES (test code = 1068) 0.50 K/UL 0.20-1.00 ABSOLUTE EOSINOPHILS (test code = 1040) 0.09 K/UL 0.00-0.50 ABSOLUTE BASOPHILS (test code = 1069) 0.03 K/UL 0.00-0.20 ABS IMMATURE GRANULOCYTES (test code = 1020) 0.01 K/UL 0.00-0.10 ABS NUCLEATED RBCS (test code = 81460) 0.00 K/UL 0.00-0.11
--- NOTE | 2023-07-30 12:45 | RAD REPORT ---
EXAM DESCRIPTION: CT - Head Brain Wo Cont - 07/30/2023 12:33 pm CLINICAL HISTORY: Generalized weakness/lethargy COMPARISON: none TECHNIQUE: Computed axial tomography of the head was obtained. IV contrast was not requested. All CT scans are performed using dose optimization technique as appropriate and may include automated exposure control or mA/KV adjustment according to patient size. FINDINGS: An intracranial bleed is not seen The ventricles are normal in caliber No significant hypodense areas within the brain visualized No extra-axial fluid collection is noted. Fluid within the sinuses/ mastoids is not seen IMPRESSION: No acute intracranial abnormality is seen If patient's symptoms persist MRI of the brain would be recommended
[2023-07-30 12:55] LABS: Albumin/Globulin Ratio 0.6 (1.1-1.8); Anion Gap 8.6 mEq/L (5.0-15.0); Bilirubin Direct 0.1 mg/dL (0-0.2); Bilirubin Indirect, Calculated 0.3 mg/dL (0.2-0.8); Bilirubin Total 0.4 mg/dL (0.2-1.0); Globulin 4.8 g/dL (2.3-3.5); Magnesium 2.1 mg/dL (1.6-2.4); Potassium 3.6 mEq/L (3.5-5.1); Protein, Total 7.8 g/dL (6.4-8.2); Troponin High Sensitivity 3.6 pg/mL (<58.9)
[2023-07-30 13:34] LABS: Absolute Basophils 0.1 K/uL (0-0.5); Absolute Lymphocytes (CBC) 2.6 K/uL (0.7-4.9); Absolute Monocytes 0.5 K/uL (0.1-1.3); Absolute Neutrophil 5.6 K/uL (1.8-8.0); Basophils % 1.2 % (0-1.3); Eosinophils % 0.5 % (0-4.4); Hematocrit 40.2 % (36.0-45.0); Lymphocytes % 29.6 % (15.3-44.8); MCH 24.4 pg (27.0-35.0); MCHC 32.3 g/dL (32.0-36.0); MCV 75.5 fL (80-100); MPV 7.8 fL (7.6-11.3); Monocytes % 5.3 % (3.3-12.3); Neutrophils % 63.4 % (41.7-73.7); Nucleated Red Blood Cells % 0.1 % (0-0); Platelets 316 thou/uL (152-406); RBC Red Blood Cell Count 5.32 M/uL (3.86-4.86); Red Cell Distribution Width 14.7 % (12.1-15.2)
--- NOTE | 2023-07-30 13:49 | ER ---
Nurse's Notes [facility] Name: Korina Nolen Age: 52 yrs Sex: Female : 1970 Arrival Date: 07/30/2023 Time: 12:07 Bed 17 Private MD: Diagnosis: Dizziness, ambulatory dysfunction resolved Presentation: 07/29 12:12 Chief complaint: EMS states: Generalized weakness for a couple of days. Ran out of [facility] oxy/gabapentin 2 days ago, takes it for chronic right hip pain. Coronavirus screen: Vaccine status: Patient reports being unvaccinated. Ebola Screen: Patient denies travel to an Ebola-affected area in the 21 days before illness onset. Initial Sepsis Screen: Does the patient meet any 2 criteria? Yes Does the patient have a suspected source of infection? No. Patient's initial sepsis screen is negative. Risk Assessment: Do you want to hurt yourself or someone else? Patient reports no desire to harm self or others. Onset of symptoms was July 28, 2023. 12:12 Method Of Arrival: EMS: [facility] 12:12 Acuity: JULIANA 3 nj Historical: - Allergies: 12:20 No Known Allergies; nj1 - PMHx: 12:20 Chronic hip pain; nj1 - Immunization history:: Client reports having NOT received the Covid vaccine. - Social history:: Smoking status: Patient reports the use of cigarette tobacco products, cigars. Screenin:20 [facility] ED Fall Risk Assessment (Adult) History of falling in the last 3 months, nj including since admission No falls in past 3 months (0 pts) Confusion or Disorientation No (0 pts) Intoxicated or Sedated No (0 pts) Impaired Gait Yes (1 pt) Mobility Assist Device Used Yes (1 pt) Altered Elimination No (0 pt) Score/Fall Risk Level 0 - 2 = Low Risk Oriented to surroundings, Maintained a safe environment, Hourly rounding (assess needs \T\ fall precautionary measures) done. Abuse screen: Denies threats or abuse. Denies injuries from another. Nutritional screening: No deficits noted. Tuberculosis screening: No symptoms or risk factors identified. Assessment: 12:15 General: Appears in no apparent distress. comfortable, Behavior is calm, cooperative, nj appropriate for age. 12:15 Pain: Complains of pain in Hip, right Pain currently is 9 out of 10 on a pain scale. nj1 Neuro: Level of Consciousness is awake, alert, obeys commands, Oriented to person, place, time, situation, Reports weakness generalized. Cardiovascular: Patient's skin is warm and dry. Respiratory: Airway is patent Respiratory effort is even, unlabored. 13:28 Reassessment: Patient appears in no apparent distress at this time. Patient and/or nj1 family updated on plan of care and expected duration. Pain level reassessed. Patient is alert, oriented x 3, equal unlabored respirations, skin warm/dry/pink. Vital Signs: 12:12 BP 120 / 93; Pulse 72; Resp 17; Pulse Ox 95% on R/A; Weight 74.84 kg; Height 5 ft. 9 nj1 in. ; Pain 9/10; 13:27 BP 119 / 78; Pulse 74; Resp 15; Pulse Ox 100% on R/A; Pain 9/10; nj1 12:12 Body Mass Index 24.37 (74.84 kg, 175.26 cm) nj1 12:12 Pain Scale: Adult nj1 13:27 Pain Scale: Adult ms1 ED Course: 12:11 Patient arrived in ED. nj1 12:12 Emy Borges MD is Attending Physician. sp3 12:12 Landy Mcnamara, RN is Primary Nurse. nj1 12:15 Patient has correct armband on for positive identification. Bed in low position. Call nj1 light in reach. Side rails up X 1. 12:15 Provided Education on: call light, fall precautions. Client placed on continuous nj1 cardiac and pulse oximetry monitoring. NIBP monitoring applied. wired sweatband cutter on. 12:20 Triage completed. nj1 12:20 Arm band placed on right wrist. nj1 12:28 Inserted saline lock: 22 gauge in right antecubital area, using aseptic technique. nj1 Blood collected. 12:34 CT Head Brain wo Cont In Process Unspecified. EDMS Administered Medications: No medications were administered Outcome: 13:49 Discharge ordered by . sp3 14:00 Patient left the ED. nj1 Signatures: Dispatcher [employer] EDMS Emy Borges MD MD sp3 Landy Mcnamara, RN RN nj1
--- NOTE | 2023-07-30 13:49 | EDPHYS ---
Physician Documentation [facility] Name: Korina Nolen Age: 52 yrs Sex: Female : 1970 Arrival Date: 07/30/2023 Time: 12:07 Bed 17 Private MD: ED Physician Emy Borges HPI: 07/29 12:50 This 52 yrs old Black Female presents to ER via EMS with complaints of uneasy on feet. sp3 12:50 52-year-old female with a history of chronic hip pain, bipolar disease who presents to sp3 the ED with chief complaint "uneasy on her feet for several days" patient states that symptoms are now resolved. Patient also is requesting a refill for her OxyContin and gabapentin because she "has been able to see her doctor". She denies any other symptoms including headache, current weakness, numbness or tingling, speech changes, memory changes, vision changes or any other neurological symptoms. Remainder of ROS is negative as well. Symptoms are again resolved and patient is now mainly here for medication refill and to "make sure eating is okay".. Historical: - Allergies: 12:20 No Known Allergies; nj1 - PMHx: 12:20 Chronic hip pain; nj1 - Immunization history:: Client reports having NOT received the Covid vaccine. - Social history:: Smoking status: Patient reports the use of cigarette tobacco products, cigars. ROS: 12:51 Constitutional: Negative for fever, chills, and weight loss, Eyes: Negative for injury, sp3 pain, redness, and discharge, ENT: Negative for injury, pain, and discharge, Neck: Negative for injury, pain, and swelling, Cardiovascular: Negative for chest pain, palpitations, and edema, Respiratory: Negative for shortness of breath, cough, wheezing, and pleuritic chest pain, Abdomen/GI: Negative for abdominal pain, nausea, vomiting, diarrhea, and constipation, Back: Negative for injury and pain, : Negative for injury, bleeding, discharge, and swelling, MS/Extremity: Negative for injury and deformity, Skin: Negative for injury, rash, and discoloration, Psych: Negative for depression, anxiety, suicide ideation, homicidal ideation, and hallucinations, Allergy/Immunology: Negative for hives, rash, and allergies, Endocrine: Negative for neck swelling, polydipsia, polyuria, polyphagia, and marked weight changes, Hematologic/Lymphatic: Negative for swollen nodes, abnormal bleeding, and unusual bruising, 12:51 All other systems are negative, Exam: 12:51 Constitutional: This is a well developed, well nourished patient who is awake, alert, sp3 and in no acute distress. Head/Face: Normocephalic, atraumatic. Eyes: Pupils equal round and reactive to light, extra-ocular motions intact. Lids and lashes normal. Conjunctiva and sclera are non-icteric and not injected. Cornea within normal limits. Periorbital areas with no swelling, redness, or edema. ENT: Nares patent. No nasal discharge, no septal abnormalities noted. External auditory canals are clear. Oropharynx with no redness, swelling, or masses, exudates, or evidence of obstruction, uvula midline. Mucous membranes moist. Neck: Trachea midline, no thyromegaly or masses palpated, and no cervical lymphadenopathy. Supple, full range of motion without nuchal rigidity, or vertebral point tenderness. No Meningismus. Chest/axilla: Normal chest wall appearance and motion. Nontender with no deformity. No lesions are appreciated. Cardiovascular: Regular rate and rhythm with a normal S1 and S2. No gallops, murmurs, or rubs. Normal PMI, no JVD. No pulse deficits. Respiratory: Lungs have equal breath sounds bilaterally, clear to auscultation and percussion. No rales, rhonchi or wheezes noted. No increased work of breathing, no retractions or nasal flaring. Abdomen/GI: Soft, non-tender, with normal bowel sounds. No distension or tympany. No guarding or rebound. No evidence of tenderness throughout. Back: No spinal tenderness. No costovertebral tenderness. Full range of motion. Skin: Warm, dry with normal turgor. Normal color with no rashes, no lesions, and no evidence of cellulitis. MS/ Extremity: Pulses equal, no cyanosis. Neurovascular intact. Full, normal range of motion. Neuro: Awake and alert, GCS 15, oriented to person, place, time, and situation. Cranial nerves II-XII grossly intact. Motor strength 5/5 in all extremities. Sensory grossly intact. Cerebellar exam normal. Normal gait. Psych: Awake, alert, with orientation to person, place and time. Behavior, mood, and affect are within normal limits. 13:23 ECG was reviewed by the Attending Physician. EKG demonstrates normal sinus rhythm at 68 sp3 bpm with normal intervals, normal QRS, normal axis, nonspecific ST/T-segment's without evidence of acute ischemia. Vital Signs: 12:12 BP 120 / 93; Pulse 72; Resp 17; Pulse Ox 95% on R/A; Weight 74.84 kg; Height 5 ft. 9 nj1 in. ; Pain 9/10; 13:27 BP 119 / 78; Pulse 74; Resp 15; Pulse Ox 100% on R/A; Pain 9/10; nj1 12:12 Body Mass Index 24.37 (74.84 kg, 175.26 cm) nj1 12:12 Pain Scale: Adult nj1 13:27 Pain Scale: Adult nj1 MDM: 12:13 Patient medically screened. sp3 13:48 Data reviewed: vital signs, lab test result(s), radiologic studies. ED course: Workup sp3 reviewed and demonstrates no significant abnormality. We will refill gabapentin 800 mg twice daily and discharge patient home safely.. 07/29 12:14 Order name: Basic Metabolic Panel; Complete Time: 13:40 sp3 07/29 12:14 Order name: CBC with Diff; Complete Time: 13:40 sp3 07/29 12:14 Order name: Hepatic Function; Complete Time: 13:40 sp3 07/29 12:14 Order name: Magnesium; Complete Time: 13:40 sp3 07/29 12:14 Order name: Troponin High Sensitivity; Complete Time: 13:40 sp3 07/29 12:14 Order name: CT Head Brain wo Cont; Complete Time: 12:49 sp3 07/29 12:14 Order name: EKG; Complete Time: 12:14 sp3 07/29 12:14 Order name: Cardiac monitoring; Complete Time: 13:27 sp3 07/29 12:14 Order name: EKG - Nurse/Tech; Complete Time: 13:27 sp3 07/29 12:14 Order name: IV Saline Lock; Complete Time: 12:32 sp3 07/29 12:14 Order name: Labs collected and sent; Complete Time: 12:32 sp3 07/29 12:14 Order name: NPO; Complete Time: 13:02 sp3 07/29 12:14 Order name: O2 Per Protocol; Complete Time: 12:21 sp3 07/29 12:14 Order name: O2 Sat Monitoring; Complete Time: 12:21 sp3 07/29 12:55 Order name: Labs - recollect needed: recollect cbc; Complete Time: 13:27 bd Administered Medications: No medications were administered Disposition Summary: 07/30/23 13:49 Discharge Ordered Notes: Location: Home sp3 Condition: Stable sp3 Diagnosis - Dizziness, ambulatory dysfunction resolved sp3 Followup: sp3 - With: Private Physician - When: Upon discharge from the Emergency Department - Reason: Continuance of care Discharge Instructions: - Discharge Summary Sheet sp3 - Dizziness, [id number] sp3 Forms: - Medication Reconciliation Form sp3 - Thank You Letter sp3 - Antibiotic Education sp3 - Prescription Opioid Use sp3 - Patient Portal Instructions sp3 - Leadership Thank You Letter sp3 Prescriptions: - gabapentin 800 mg Oral tablet - take 1 tablet ORAL route every 12 hours; 60 tablet; Refills: 0, Product sp3 Selection Permitted Signatures: Dispatcher [employer] EDLuna Foley Setul, MD MD sp3 Landy Mcnamara RN RN nj1
[2023-07-30 14:32] VITALS: BP 119/78; O2SAT 100
--- NOTE | 2023-07-31 14:26 | EKG ---
Test Date: 2023-07-30 Test Time: 12:48:10 [employer]: EVANGELINA MEASUREMENT RESULTS: Intervals: Rate: 100 GA: 136 QRSD: 96 QT: 358 QTc: 461 [place]: P: 53 GA: 136 QRS: 8 T: 34 INTERPRETIVE STATEMENTS: Normal sinus rhythm Normal ECG Compared to ECG 07/30/2023 12:17:36 Left posterior fascicular block no longer present Myocardial infarct finding no longer present Electronically Signed On 07-31-23 14:23:25 CDT by Nguyễn Kelley
--- NOTE | 2023-07-31 14:26 | EKG ---
Test Date: 2023-07-30 Test Time: 12:17:36 Catalogue Illustrator: EVANGELINA MEASUREMENT RESULTS: Intervals: Rate: 68 VT: 146 QRSD: 82 QT: 410 QTc: 435 [place]: P: VT: 146 QRS: 165 T: 162 INTERPRETIVE STATEMENTS: Normal sinus rhythm Left posterior fascicular block Inferior infarct, age undetermined Abnormal ECG No previous ECG available for comparison Electronically Signed On 07-31-23 14:23:28 CDT by Nguyễn Kelley
== END ==
LOC: ER 12:07
DX: R42 Dizziness and giddiness (principal); G89.29 Other chronic pain; Z72.0 Tobacco use
CPT/HCPCS: 36415; 70450; 80048; 80076; 83735; 84484; 85025; 93005

== ENCOUNTER 2023-08-26 06:33 | Observation (INO) | payer OTHER ==
[2023-08-25 10:32] LABS: Absolute Basophils 0.1 K/uL (0-0.5); Absolute Eosinophils 0.1 K/uL (0-0.5); Absolute Lymphocytes (CBC) 2.5 K/uL (0.7-4.9); Absolute Monocytes 0.6 K/uL (0.1-1.3); Absolute Neutrophil 4.6 K/uL (1.8-8.0); Basophils % 0.9 % (0-1.3); Eosinophils % 0.9 % (0-4.4); Hematocrit 40.2 % (36.0-45.0); Lymphocytes % 32.1 % (15.3-44.8); MCH 24.2 pg (27.0-35.0); MCHC 32.3 g/dL (32.0-36.0); MCV 74.8 fL (80-100); MPV 8.3 fL (7.6-11.3); Monocytes % 7.9 % (3.3-12.3); Neutrophils % 58.2 % (41.7-73.7); Nucleated Red Blood Cells % 0.4 % (0-0); Platelets 249 thou/uL (152-406); RBC Red Blood Cell Count 5.37 M/uL (3.86-4.86)
[2023-08-25 10:33] LABS: Specific Gravity 1.009 (1.005-1.030); Sqamous Epithelial <5 /HPF (None Seen); Urine Bacteria <20 /HPF (<20); Urine Bilirubin NEGATIVE (Negative); Urine Blood Trace (Negative); Urine Clarity Clear (Clear); Urine Color Colorless (Yellow); Urine Culture Reflex Order NOT NEEDED; Urine Glucose NEGATIVE (Negative); Urine Ketones NEGATIVE (Negative); Urine Microscopic Reflex YN ORDER UMIC; Urine Nitrite NEGATIVE (Negative); Urine Protein NEGATIVE (Negative); Urine RBC <5 /HPF (None Seen); Urine Urobilinogen Normal (Normal); Urine WBC <5 /HPF (<5); Urine pH 6.5 (5.0-7.0)
[2023-08-25 10:36] LABS: PT Prothrombin Time 10.3 SECONDS (9.5-12.5); PTT, Activated Partial Thromb 30.5 SECONDS (24.3-36.9); Protime INR 0.93
[2023-08-25 10:49] LABS: Albumin 3.2 g/dL (3.4-5.0); Albumin/Globulin Ratio 0.7 (1.1-1.8); Anion Gap 4.7 mEq/L (5.0-15.0); Bilirubin Total 0.3 mg/dL (0.2-1.0); Globulin 4.5 g/dL (2.3-3.5); Potassium 3.7 mEq/L (3.5-5.1); Protein, Total 7.7 g/dL (6.4-8.2)
--- NOTE | 2023-08-25 11:19 | RAD REPORT ---
EXAM DESCRIPTION: Taylor Portillo (2 Views)08/25/2023 10:27 am CLINICAL HISTORY: Preop for hip arthroplasty COMPARISON: 2010 FINDINGS: The lungs appear clear of acute infiltrate. The heart is normal size The patient's known hiatal hernia is not clearly seen on this exam IMPRESSION: No acute abnormalities displayed
[2023-08-26] MEDS: GABAPENTIN 100 MG CAP ONE (06:38)
[2023-08-26] MEDS: Ringers Lactate 1,000 ML IV ONE ×2 (06:45→10:17)
[2023-08-26] MEDS: Oxycodone HCl/Acetaminophen 5/325 MG TAB ONE (06:52)
[2023-08-26] MEDS: ACETAMINOPHEN 500 MG TAB ONE (06:52)
[2023-08-26] MEDS: CELECOXIB 100 MG CAPSULE ONE (06:52)
[2023-08-26] MEDS: CEFAZOLIN SODIUM 2 GM/VIAL ONE (08:00)
[2023-08-26] MEDS: TRANEXAMIC ACID 1,000 MG/10 ML VIAL IV ONE (08:05)
--- NOTE | 2023-08-26 09:13 | RAD REPORT ---
EXAM DESCRIPTION: RAD - Hip Right 1 View - 08/26/2023 9:06 am CLINICAL HISTORY: RIGHT HIP IN OR COMPARISON: No comparisons FINDINGS: Single intraoperative projection submitted from right hip arthroplasty procedure. Hardware is in expected alignment and positioning.
[2023-08-26] MEDS ORDERED: ONDANSETRON 4 MG/2 ML VIAL IV PRN (09:36)
[2023-08-26] MEDS ORDERED: DOCUSATE NA 100 MG CAP PO PRN (09:36)
--- NOTE | 2023-08-26 09:36 | P.BOP ---
Preoperative diagnosis: right hip arthritis Postoperative diagnosis: same Primary procedure: right total hip arthoplasty Estimated blood loss: 150 ccs Anesthesia: General Complications: None Transferred to: Recovery Room Condition: Good
--- OUTSIDE RECORDS SUMMARY | 2023-08-26 10:49 | XMS REPORT | Continuity of Care Document ---
Author Name Unknown Address [address] [facility] [address] [place] [address] [facility] thconnect Address [address] [facility] [address] [place] [address] Care Team Providers Care Code Official Name Role Phone Unavailable Unavailable Unavailable Encounters Start Date/Time End Date/Time Encounter Type Admission Type Attending [facility] Care Facility Care Department Encounter ID Source 2023-05-23 17:49:39 2023-05-23 17:49:39 Outpatient SFA [facility] [id number] Dewayne Romo 2023-01-08 09:43:41 2023-01-08 09:43:41 Outpatient SFA [facility] [id number] Dewayne Romo 2022-12-11 10:42:21 2022-12-11 10:42:21 Outpatient [facility] SFA [id number] Dewayne Romo 2022-07-22 17:08:42 2022-07-22 17:08:42 Outpatient SFA [facility] [id number] Dewayne Romo Results Test Description Test Time Test Comments Results Result Co mments Source LIPID [id number] 03:43:19* Test Item Value Reference Range Interpretation [...] SPECIMENS. FOR MOREINFORMATION, SEE CLIENT ANNOUNCEMENT AT [email or web address] /[email or web address]-[email or web address] RISK RATIO LDL/HDL (test code = 2237) 1.20 RATIO <3.22 COMPREHENSIVE METABOLIC [id number] 03:43:19* Test Item Value Reference Range Interpretation Comme nts GLUCOSE (test code = 2216) 67 MG/DL 70-99 L BUN (test code = 2207) 10 MG/DL 6-20 CREATININE (test code = 2213) 0.74 MG/DL 0.60-1.30 eGFR (2020 CKD-EPI) (test code = 64562) 97 ML/MIN/1.73 >60 CALC BUN/CREAT (test code [...] G/DL 3.5-5.2 CALC GLOBULIN (test code = 0) 2.9 G/DL 1.9-3.7 CALC A/G RATIO (test [...] code = 2218) 14 U/L 5-40 HEMOGLOBIN [id number] 01:58:17* Test Item Value Reference Range Interpretation Comme nts HEMOGLOBIN A1c (test code = 63842) 5.3 % 4.2-5.6 CBC W/AUTO DIFF WITH [id number] 01:24:22* Test Item Value Reference Range Interpretation [...] 0.00-0.10 ABS NUCLEATED RBCS (test code = 86721) 0.00 K/UL 0.00-0.11 COMPREHENSIVE METABOLIC [id number] 07:58:05* Test Item Value Reference Range Interpretation [...] code = 2218) 18 U/L 5-40 LIPID [id number] 07:58:05* Test Item Value Reference Range Interpretation Comme nts CHOLESTEROL (test code = 2210) 189 MG/DL <200 TRIGLYCERIDES (test code = 2232) 79 MG/DL <150 HDL CHOLESTEROL (test code = 2220) 79 MG/DL >39 CALC LDL CHOL (test code = 2236) 93 MG/DL <100 NOTE: CALCULATED LDL IS BASED ON MARBIN-URIAS METHOD WHICHINCLUDES ADJUSTABLE TRIGLYCERIDE:VLDL CHOLESTEROL RATIO.THIS FACTOR VARIES BY MEASURED TRIGLYCERIDE AND NON-HDLCHOLESTEROL CONCENTRATIONS WITH INCREASED CALCULATED LDL SEENIN HIGHER TRIGLYCERIDE OR LOWER NON-HDL SPECIMENS. FOR MOREINFORMATION, SEE CLIENT ANNOUNCEMENT AT [email or web address] /CalcLDL-C RISK RATIO LDL/HDL (test code = 2238) 1.18 RATIO <3.22 TSH, THIRD [id number] 06:47:53* Test Item Value Reference Range Interpretation Comme nts TSH, THIRD GENERATION (test code = 2821) 1.930 UIU/ML 0.400-4.100 UNLESS OTHERWISE INDICATED, ALL TESTING PERFORMED [facility] [address] [employer] [address] [place] [id number] SUPERVISOR DRYING: MARY BOWEN M.D. CLIA NUMBER [id number] [facility] [place] [id number] HEMOGLOBIN [id number] 03:55:14* Test Item Value Reference Range Interpretation Comme nts HEMOGLOBIN A1c (test code = 98892) 5.5 % 4.2-5.6 CBC W/AUTO DIFF WITH [id number] 03:42:47* Test Item Value Reference Range Interpretation [...] = 1065) 0.0 /100 WBC'S See_Comment [Automated [employer]a ge] The system which generated this result [...] 0.00-0.10 ABS NUCLEATED RBCS (test code = 79908) 0.00 K/UL 0.00-0.11
[2023-08-26 10:52] LABS: Hematocrit 38.6 % (36.0-45.0); Hemoglobin 12.3 g/dL (12.0-15.0)
[2023-08-26 11:46] VITALS: O2SAT 96
[2023-08-26 12:27] VITALS: BMI 24.5
--- NOTE | 2023-08-26 15:28 | OP ---
Date of Procedure: 08/26/2023 Surgeon: Dillon Larsen MD Preoperative Diagnosis: Right hip severe arthritic change. Postoperative Diagnosis: Right hip severe arthritic change. Procedure: Right total hip arthroplasty using the Tom system. Estimated Blood Loss: 150 cc. Complication: There were no complications. Specimens: No pathology specimens sent. Indication For Operation: Patient is a 52-year-old female who has had debilitating pain related to h er right hip. She came to see me in my office where x-rays demonstrated an extremely destructive hip arthritic change. She does have limited motion with internal and external rotation and pain with an y movement of the hip. Risks, benefits, and alternatives of different methods of treating this have been discussed with the patient. She states she understands things as presented and wishes to procee d. Description Of Procedure: The patient was taken to the operating room. Spinal anesthesia was obtain ed. After this, general anesthesia was then obtained by the Anesthesia staff. She was then rolled l eft side down and right hip was then prepped and draped in the usual sterile fashion for the procedur e. Following this, a standard posterior lateral incision was taken down carefully through skin and s oft tissues. Meticulous hemostasis being maintained using Bovie electrocautery. This leads down to the fascia. The fascia was encountered. A small stab wound was made in the fascia. Gluteal tendon was palpated to ensure it was in correct position. Incision was then carried up until near the tip o f the greater trochanter. It was then curved gently backward and the gluteus juan daniel muscles were th en spread gently using finger pressure. The sciatic nerve was palpated and protected as the Charnley was placed. Then, some degree of fatty bursal tissue was removed. The external rotators and capsul e were then taken down and tagged for later repair. This leads to hip. The hip was then dislocated. Standard neck cut was made. The femoral head was then sized. The soft tissue was removed from wit hin the acetabulum. This includes the labrum. Following this, it was slightly deepened and then arcelia med in standard fashion. When there was good bleeding bone and it appeared to be reamed appropriatel y, the cup was then placed in standard fashion. It appears to have a good fit. After this, box cutt er was used as well as canal finding reamer to lateralize the stem and it was then broached up to the appropriate size. After this, an x-ray was taken which demonstrated the acetabulum could be a littl e more compressed but the femoral stem appeared to be correctly sized and it also feels correctly siz ed. After this, the broach was removed and the liner was placed and then impacted adding some more c ompression to the acetabulum. After this, the standard stem was then placed to the appropriate depth that appears to have good mechanical properties. It was then trialed with a 0 which healed stabilit y to full flexion, full adduction and internal rotation to at least 40 to 45 degrees. The standard w as selected and final ball was then tapped in place. It was then relocated and it was stable in abov e areas. After this, the wound was copiously irrigated and the external rotators and capsule were th en repaired back to the bone via bone tunnels. The wound was again irrigated. Skin was closed using Vicryl sutures and the skin was stapled. The patient was placed in an Aquacel dressing, awakened, a nd taken to the recovery room. There were no complications. SE/MODL Voice ID: [id number] Report ID: [id number]
[2023-08-26] MEDS: INVEGA SUSTENNA 234 MG/1.5 ML IM SCH (15:30)
[2023-08-26] MEDS: CEFAZOLIN 1 GM in NA CHLORIDE 0.9% 50 ML IVPB SCH (16:26)
[2023-08-26 17:24] LABS: Hematocrit 37.5 % (36.0-45.0); Hemoglobin 11.8 g/dL (12.0-15.0)
[2023-08-26] MEDS: ACETAMINOPHEN 325 MG TABLET PO PRN (20:43)
[2023-08-27] MEDS: HYDROCODONE/APAP 7.5/325 MG TAB PO PRN (00:11)
[2023-08-27 07:39] LABS: Absolute Lymphocytes (CBC) 2.1 K/uL (0.7-4.9); Absolute Monocytes 1.1 K/uL (0.1-1.3); Absolute Neutrophil 7.2 K/uL (1.8-8.0); Basophils % 0.5 % (0-1.3); Eosinophils % 0.4 % (0-4.4); Hematocrit 34.7 % (36.0-45.0); Hemoglobin 11.3 g/dL (12.0-15.0); Lymphocytes % 20.1 % (15.3-44.8); MCH 23.9 pg (27.0-35.0); MCHC 32.5 g/dL (32.0-36.0); MCV 73.6 fL (80-100); MPV 7.6 fL (7.6-11.3); Monocytes % 10.6 % (3.3-12.3); Neutrophils % 68.4 % (41.7-73.7); Nucleated Red Blood Cells % 0.1 % (0-0); Platelets 220 thou/uL (152-406); RBC Red Blood Cell Count 4.71 M/uL (3.86-4.86); Red Cell Distribution Width 14.7 % (12.1-15.2)
--- NOTE | 2023-08-27 07:49 | P.CNS ---
Date of Consult: 08/27/23 Reason for Consult: medical mangement Requesting Physician: Dillon Larsen History of Present Illness: Hospital medicine consult 52-year-old female status post right total hip arthoplasty Attending Provider: Dillon Larsen on 08/26/23 past medical history history of schizophrenia, opioid addiction, substance abuse, pain control as needed analgesia, no reported fever, encourage incentive spirometer when awake. PT eval for DME/gait training. Laboratory evaluation microcytic anemia hemoglobin 11.3 hematocrit 34.7, UA from 08/24 from UA. Normal UA. Chest x-ray 08/24 IMPRESSION: No acute abnormalities displayed, noted hiatal hernia. Postop hip x-ray 08/25 FINDINGS: Single intraoperative projection submitted from right hip arthroplasty procedure. Hardware is in expected alignment and positioning. Allergies No Known Allergies Allergy (Verified 08/26/23 07:13) Home Medications: Dextroamphetamine/Amphetamine [Dextroamp-Amphetamin 10 mg Tab] 10 mg PO DAILY 08/25/23 Gabapentin 800 mg PO TIDP PRN 08/25/23 Oxycodone HCl/Acetaminophen [Oxycodone-Acetaminophen 10-325] 1 each PO TIDP PRN 08/25/23 - Past Medical/Surgical History Diabetic: No -: bipolar -: arthritis -: adhd -: hernia -: adenoidectomy - Family History Mother Medical History: Heart disease, Diabetes - Social History Alcohol use: No CD- Drugs: No Caffeine use: Yes Place of Residence: Home Review of Systems Per HPI Physical Examination Temp Pulse Resp BP Pulse Ox 98.5 F 79 14 105/50 L 95 08/27/23 07:49 08/27/23 07:49 08/27/23 07:49 08/27/23 07:49 08/27/23 07:49 General: Alert, In no apparent distress, Oriented x3 HEENT: Atraumatic, Normocephalic Neck: Supple, 2+ carotid pulse no bruit Respiratory: Normal air movement, Diminished Cardiovascular: Normal pulses, Regular rate/rhythm Capillary refill: <2 Seconds Gastrointestinal: Normal bowel sounds, Soft and benign Musculoskeletal: Other (Surgical dressing right hip clean dry and intact) Neurological: Normal speech, Normal affect Laboratory Data (last 24 hrs) 08/27/23 08/26/23 08/26/23 07:29 17:11 10:30 WBC 10.50 Hgb 11.3 L 11.8 L 12.3 Hct 34.7 L 37.5 38.6 Plt Count 220 Conclusions/Impression: Assessment plan Hospital medicine consult 52-year-old female status post right total hip arthoplasty Attending Provider: Dillon Larsen on 08/26/23 pain control as needed analgesia, no reported fever, encourage incentive spirometer when awake. PT eval for DME/gait training. UA from 08/24 from UA. Normal UA. Chest x-ray 08/24 IMPRESSION: No acute abnormalities displayed, noted hiatal hernia. Postop hip x-ray 08/25 FINDINGS: Single intraoperative projection submitted from right hip arthroplasty procedure. Hardware is in expected alignment and positioning. services manager consult for discharge history of schizophrenia, History opioid addiction substance abuse, Monitor withdrawals, as needed analgesia Resume appropriate Microcytic anemia Laboratory evaluation microcytic anemia hemoglobin 11.3 hematocrit 34.7, Trend H&H Full code DVT Lovenox Diet cardiac Disposition, home with outpatient physical therapy Critical Care: No Time Spent Managing Pts care (In Minutes): 55
--- NOTE | 2023-08-27 07:49 | P.PN ---
Subjective Date of Service: 08/27/23 Hospital medicine consult 52-year-old female status post right total hip arthoplasty Dillon Larsen on 08/26/23 pain control as needed analgesia, no reported fever, encourage incentive spirometer when awake. PT eval for DME/gait training. park services specialist consult for RW, BSC, HH w PT requested for DC planning General: Alert, In no apparent distress, Oriented x3 HEENT: Atraumatic, Normocephalic Neck: Supple, 2+ carotid pulse no bruit Respiratory: Normal air movement, Diminished Cardiovascular: Normal pulses, Regular rate/rhythm Capillary refill: <2 Seconds Gastrointestinal: Normal bowel sounds, Soft and benign Musculoskeletal: Other (Surgical dressing right hip clean dry and intact) Neurological: Normal speech, Normal affect Review of Systems per HPI Physical Examination - Vital Signs Temperature: 98.5 F Blood Pressure: 105/50 Pulse: 79 Respirations: 14 Pulse Ox (%): 95 - Studies Laboratory Data (last 24 hrs) 08/27/23 08/26/23 08/26/23 07:29 17:11 10:30 WBC 10.50 Hgb 11.3 L 11.8 L 12.3 Hct 34.7 L 37.5 38.6 Plt Count 220 Assessment And Plan - Plan Assessment plan status post right total hip arthoplasty Attending Provider: Dillon Larsen on 08/26/23 pain control as needed analgesia, no reported fever, encourage incentive spirometer when awake. PT eval for DME/gait training. UA from 08/24 from UA. Normal UA. Chest x-ray 08/24 IMPRESSION: No acute abnormalities displayed, noted hiatal hernia. Postop hip x-ray 08/25 FINDINGS: Single intraoperative projection submitted from right hip arthroplasty procedure. Hardware is in expected alignment and positioning. park services specialist consult for discharge planning history of schizophrenia, History opioid addiction substance abuse, Monitor withdrawals, as needed analgesia Resume appropriate Microcytic anemia Laboratory evaluation microcytic anemia hemoglobin 11.3 hematocrit 34.7, Trend H&H Full code DVT Lovenox Diet cardiac Discharge Plan: Home - Code Status/Comfort Care Code Status: Full Code Critical Care: No Time Spent Managing PTS Care (In Minutes): 35
[2023-08-27 07:54] LABS: Albumin 2.6 g/dL (3.4-5.0); Anion Gap 5.7 mEq/L (5.0-15.0); Phosphorus 3.8 mg/dL (2.5-4.9); Potassium 3.7 mEq/L (3.5-5.1)
[2023-08-27] MEDS: ENOXAPARIN 40 MG/0.4 ML SQ SCH (08:14)
[2023-08-27] MEDS: INVEGA SUSTENNA 234 MG/1.5 ML IM SCH (08:41)
[2023-08-27 15:39] VITALS: BP 105/50; TEMP 98.5
== END 2023-08-27 14:28 | disposition home health service (06) ==
LOC: OR 06:33 → 4TH 10:45
PROVIDERS: ADMIT Orthopaedic Surgery; ATTEND Orthopaedic Surgery
PROC: 0SR90JA Replacement of Right Hip Joint with Synthetic Substitute, Uncemented, Open Approach (ICD-10-PCS; principal; 2023-08-26 07:00)
DX: M16.11 Unilateral primary osteoarthritis, right hip (principal); D64.9 Anemia, unspecified; F11.20 Opioid dependence, uncomplicated; F20.9 Schizophrenia, unspecified
CPT/HCPCS: 85025 ×2; 81001; 36415 ×2; 85610; 88304; 88311; 85730; 80069; 85018 ×2; 85014 ×2; 80053; 71046; 73501; 97110 ×2; 97116 ×2; 97161; 97530 ×2; 27130; C1776 ×4; J1650; J7120 ×2; J0690 ×3; G0378; G0379

== ENCOUNTER 2023-09-05 12:17 | Emergency (ER) | payer OTHER ==
--- OUTSIDE RECORDS SUMMARY | 2023-09-05 12:20 | XMS REPORT | Continuity of Care Document ---
Author Name Unknown Address [address] [facility] [address] [place] [address] [facility] thconnect Address [address] [facility] [address] [place] [address] Care Team Providers Care Telephone Solicitor Name Role Phone Unavailable Unavailable Unavailable Encounters Start Date/Time End Date/Time Encounter Type Admission Type Attending [facility] Care Facility Care Department Encounter ID Source 2023-05-23 17:49:39 2023-05-23 17:49:39 Outpatient SFA [facility] [id number] Dewayne Romo 2023-01-08 09:43:41 2023-01-08 09:43:41 Outpatient SFA [facility] [id number] Dewayne Romo 2022-12-11 10:42:21 2022-12-11 10:42:21 Outpatient [facility] SFA [id number] Dewayne Romo 2022-07-22 17:08:42 2022-07-22 17:08:42 Outpatient SFA [facility] 0313 Dewayne Romo Results Test Description Test Time Test Comments Results Result Co mments Source LIPID [id number] 03:43:19* Test Item Value Reference Range Interpretation [...] SPECIMENS. FOR MOREINFORMATION, SEE CLIENT ANNOUNCEMENT AT [email or web address] /CalcLDL-C RISK RATIO LDL/HDL (test code = 2237) 1.20 RATIO <3.22 COMPREHENSIVE METABOLIC [id number] 03:43:19* Test Item Value Reference Range Interpretation Comme nts GLUCOSE (test code = 2216) 67 MG/DL 70-99 L BUN (test code = 2207) 10 MG/DL 6-20 CREATININE (test code = 2213) 0.74 MG/DL 0.60-1.30 eGFR (2020 CKD-EPI) (test code = 91999) 97 ML/MIN/1.73 >60 CALC BUN/CREAT (test code [...] code = 2218) 14 U/L 5-40 HEMOGLOBIN [id number] 01:58:17* Test Item Value Reference Range Interpretation Comme nts HEMOGLOBIN A1c (test code = 79421) 5.3 % 4.2-5.6 CBC W/AUTO DIFF WITH [id number] 01:24:22* Test Item Value Reference Range Interpretation [...] 0.00-0.10 ABS NUCLEATED RBCS (test code = 23335) 0.00 K/UL 0.00-0.11 COMPREHENSIVE METABOLIC [id number] 07:58:05* Test Item Value Reference Range Interpretation [...] code = 2218) 18 U/L 5-40 LIPID [id number] 07:58:05* Test Item Value Reference Range Interpretation [...] SPECIMENS. FOR MOREINFORMATION, SEE CLIENT ANNOUNCEMENT AT [email or web address] /CalcLDL-C RISK RATIO LDL/HDL (test code = 2238) 1.18 RATIO <3.22 TSH, THIRD [id number] 06:47:53* Test Item Value Reference Range Interpretation Comme nts TSH, THIRD GENERATION (test code = 2821) 1.930 UIU/ML 0.400-4.100 UNLESS OTHERWISE INDICATED, ALL TESTING PERFORMED [facility] [employer] [address] [place] [address] [employer] REPRESENTATIVE: MARY BOWEN M.D. CLIA NUMBER [id number] [facility] [place]. [id number] HEMOGLOBIN [id number] 03:55:14* Test Item Value Reference Range Interpretation Comme nts HEMOGLOBIN A1c (test code = 81374) 5.5 % 4.2-5.6 CBC W/AUTO DIFF WITH [id number] 03:42:47* Test Item Value Reference Range Interpretation [...] = 1065) 0.0 /100 WBC'S See_Comment [Automated [employer] ge] The system which generated this result [...] 0.00-0.10 ABS NUCLEATED RBCS (test code = 56282) 0.00 K/UL 0.00-0.11
--- NOTE | 2023-09-05 14:38 | ER ---
Nurse's Notes [facility] Name: Korina Nolen Age: 52 yrs Sex: Female : 1970 Arrival Date: 09/05/2023 Time: 12:17 Bed 20 Private MD: Diagnosis: Chronic pain, not elsewhere classified Presentation: 09/04 12:43 Chief complaint: Patient states: right hip pain from recent hip replacement. States she cp4 is out of medication and Dr. Larsen's office told her to come in. Coronavirus screen: Client denies travel out of the [place] in the last 14 days. At this time, the client does not indicate any symptoms associated with coronavirus-19. Ebola Screen: Patient negative for fever greater than or equal to 101.5 degrees Fahrenheit, and additional compatible Ebola Virus Disease symptoms Patient denies exposure to infectious person. Patient denies travel to an Ebola-affected area in the 21 days before illness onset. No symptoms or risks identified at this time. Initial Sepsis Screen: Does the patient meet any 2 criteria? No. Patient's initial sepsis screen is negative. Does the patient have a suspected source of infection? No. Patient's initial sepsis screen is negative. Risk Assessment: Do you want to hurt yourself or someone else? Patient reports no desire to harm self or others. Onset of symptoms was September 05, 2023. 12:43 Method Of Arrival: EMS: [facility] cp4 12:43 Acuity: JULIANA 4 cp4 Triage Assessment: 12:46 General: Appears uncomfortable, Behavior is calm, cooperative, appropriate for age. cp4 Pain: Complains of pain in right hip Pain currently is 9 out of 10 on a pain scale. Musculoskeletal: Reports pain in right hip. 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 - Infectious Disease History:: Denies. CDIFF, C. Auris, ESBL, MRSA (w/in 1 year), VRE (w/in 1 year), TB, . - Social history:: Smoking status: Patient denies any tobacco usage or history of. Screenin:48 [facility] ED Fall Risk Assessment (Adult) History of falling in the last 3 months, cp4 including since admission No falls in past 3 months (0 pts) Confusion or Disorientation No (0 pts) Intoxicated or Sedated No (0 pts) Impaired Gait No (0 pts) Mobility Assist Device Used Yes (1 pt) Altered Elimination No (0 pt) Score/Fall Risk Level 0 - 2 = Low Risk Oriented to surroundings, Maintained a safe environment, Assessed \T\ reinforced patient's understanding of fall precautions, Hourly rounding (assess needs \T\ fall precautionary measures) done. Abuse screen: Denies threats or abuse. Nutritional screening: No deficits noted. Tuberculosis screening: No symptoms or risk factors identified. Assessment: 12:48 Reassessment: No changes from previously documented assessment. cp4 14:35 Reassessment: Patient states she wants to go home. Provider notified. cp4 Vital Signs: 12:43 BP 107 / 93; Pulse 83; Resp 18; Temp 97.8; Pulse Ox 99% ; Weight 72.12 kg; Height 5 ft. cp4 8 in. ; Pain 9/10; 14:46 BP 116 / 97; Pulse 79; Resp 18; Pulse Ox 99% ; cp4 12:43 Body Mass Index 24.18 (72.12 kg, 172.72 cm) cp4 12:43 Pain Scale: Adult cp4 ED Course: 12:29 Patient arrived in ED. hb 12:30 Maria De Jesus Sparks is Primary Nurse. cp4 12:30 Dalton Robles MD is Attending Physician. bo1 12:34 Client placed on continuous cardiac and pulse oximetry monitoring. NIBP monitoring hb applied. Pulse ox on. NIBP on. 12:46 Triage completed. cp4 12:46 Arm band placed on right wrist. Patient placed in an exam room, on a stretcher. cp4 12:48 Bed in low position. Call light in reach. Side rails up X 1. cp4 14:46 Provided Education on: chronic pain. cp4 14:46 No provider procedures requiring assistance completed. Patient did not have IV access cp4 during this emergency room visit. Administered Medications: No medications were administered Medication: 12:48 VIS not applicable for this client. cp4 Outcome: 14:38 Discharge ordered by . bo1 14:46 Discharged to home ambulatory, cp4 14:46 Condition: stable 14:46 Discharge instructions given to patient, Instructed on discharge instructions, follow up and referral plans. Demonstrated understanding of instructions, follow-up care, 14:47 Patient left the ED. cp4 Signatures: Nina Alford RN RN hb Potter, Christina cp4 aDlton Robles MD MD bo1
--- NOTE | 2023-09-05 14:38 | EDPHYS ---
Physician Documentation [facility] Name: Korina Nolen Age: 52 yrs Sex: Female : 1970 Arrival Date: 09/05/2023 Time: 12:17 Bed 20 Private MD: ED Physician Dalton Robles HPI: 09/04 14:22 This 52 yrs old Black Female presents to ER via EMS with complaints of Post Surgical bo1 Pain. 14:22 Pain to the right hip since surgery. Severity of symptoms: in the emergency department bo1 the symptoms are unchanged Pt states she had hydrocodone and oxycodone but cannot get any more meds from her PCP. The patient has experienced similar episodes in the past. Pt called an ambulance due to need for transport. 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 - Infectious Disease History:: Denies. CDIFF, C. Auris, ESBL, MRSA (w/in 1 year), VRE (w/in 1 year), TB, . - Social history:: Smoking status: Patient denies any tobacco usage or history of. ROS: 14:24 MS/extremity: Positive for pain, \\T\\ the right hip, Negative for swelling, tingling, bo1 Exam: 14:24 Constitutional: This is a well developed, well nourished patient who is awake, alert, bo1 and in no acute distress. MS/ Extremity: Pulses equal, no cyanosis. Neurovascular intact. "Pain" to the RLE at the hip. 14:24 Musculoskeletal/extremity: Circulation is intact in all extremities. Sensation intact. Calves: are non-tender, Vital Signs: 12:43 BP 107 / 93; Pulse 83; Resp 18; Temp 97.8; Pulse Ox 99% ; Weight 72.12 kg; Height 5 ft. cp4 8 in. ; Pain 9/10; 14:46 BP 116 / 97; Pulse 79; Resp 18; Pulse Ox 99% ; cp4 12:43 Body Mass Index 24.18 (72.12 kg, 172.72 cm) cp4 12:43 Pain Scale: Adult cp4 MDM: 12:51 Patient medically screened. bo1 14:25 Differential Diagnosis Pain control issue.. ED course: Unable to reach the pt's bo1 orthopedic office. Messages being left by pt are unanswered and text to pt's orthopedic MD is unanswered.. 14:38 ED course: Pt will have to obtain meds from her physicians and not the ER. bo1 Administered Medications: No medications were administered Disposition Summary: 09/05/23 14:38 Discharge Ordered Notes: Location: Home bo1 Problem: chronic bo1 Symptoms: are unchanged bo1 Condition: Stable bo1 Diagnosis - Chronic pain, not elsewhere classified bo1 Followup: bo1 - With: Private Physician - When: Upon discharge from the Emergency Department - Reason: Discharge Instructions: - Discharge Summary Sheet bo1 - Chronic Pain, Adult bo1 Forms: - Medication Reconciliation Form bo1 - Antibiotic Education bo1 - Prescription Opioid Use bo1 - Patient Portal Instructions bo1 - Leadership Thank You Letter bo1 Signatures: Maria De Jesus Sparks cp4 Dalton Robles MD MD bo1
[2023-09-05 15:16] VITALS: BP 116/97; TEMP 97.8; O2SAT 99
== END 2023-09-05 14:47 | disposition home or self-care (01) ==
LOC: ER 12:17
DX: G89.29 Other chronic pain (principal); Z98.890 Other specified postprocedural states

== ENCOUNTER 2023-11-04 16:08 | Emergency (ER) | payer OTHER ==
--- OUTSIDE RECORDS SUMMARY | 2023-11-04 16:12 | XMS REPORT | Continuity of Care Document ---
Author Name Unknown Address [address] [facility] [address] [place] [address] [facility] thconnect Address [address] [facility] [address] [place] [address] Care Team Providers Care Vp Scientific Affairs Name Role Phone Unavailable Unavailable Unavailable Encounters Start Date/Time End Date/Time Encounter Type Admission Type Attending [facility] Facility Care Department Encounter ID Source 2023-05-23 17:49:39 2023-05-23 17:49:39 Outpatient [facility] [id number] Dewayne Romo 2023-01-08 09:43:41 2023-01-08 09:43:41 Outpatient [facility] [id number] Dewayne Romo 2022-12-11 10:42:21 2022-12-11 10:42:21 Outpatient [facility]FA [id number] Dewayne Romo 2022-07-22 17:08:42 2022-07-22 17:08:42 Outpatient [facility] [id number] Dewayne Romo Results Test Description Test Time Test Comments Results Result Co mments Source LIPID [id number] 03:43:19* Test Item Value Reference Range Interpretation [...] SPECIMENS. FOR MOREINFORMATION, SEE CLIENT ANNOUNCEMENT AT [email or web address] RISK RATIO LDL/HDL (test code = 2237) 1.20 RATIO <3.22 COMPREHENSIVE METABOLIC [id number] 03:43:19* Test Item Value Reference Range Interpretation Comme nts GLUCOSE (test code = 2216) 67 MG/DL 70-99 L BUN (test code = 2207) 10 MG/DL 6-20 CREATININE (test code = 2213) 0.74 MG/DL 0.60-1.30 eGFR (2020 CKD-EPI) (test code = 25811) 97 ML/MIN/1.73 >60 CALC BUN/CREAT (test code [...] code = 2218) 14 U/L 5-40 HEMOGLOBIN [id number] 01:58:17* Test Item Value Reference Range Interpretation Comme nts HEMOGLOBIN A1c (test code = 45192) 5.3 % 4.2-5.6 CBC W/AUTO DIFF WITH [id number] 01:24:22* Test Item Value Reference Range Interpretation [...] 0.00-0.10 ABS NUCLEATED RBCS (test code = 41769) 0.00 K/UL 0.00-0.11 COMPREHENSIVE METABOLIC [id number] 07:58:05* Test Item Value Reference Range Interpretation [...] code = 2218) 18 U/L 5-40 LIPID [id number] 07:58:05* Test Item Value Reference Range Interpretation [...] SPECIMENS. FOR MOREINFORMATION, SEE CLIENT ANNOUNCEMENT AT [email or web address] /[email or web address] RISK RATIO LDL/HDL (test code = 2238) 1.18 RATIO <3.22 TSH, THIRD [id number] 06:47:53* Test Item Value Reference Range Interpretation Comme nts TSH, THIRD GENERATION (test code = 2821) 1.930 UIU/ML 0.400-4.100 UNLESS OTHERWISE INDICATED, ALL TESTING PERFORMED [facility] [employer] [address] [place] [id number] LOW VISION THERAPIST: MARY BOWEN M.D. CLIA NUMBER [id number] [facility] [place]. [id number] HEMOGLOBIN [id number] 03:55:14* Test Item Value Reference Range Interpretation Comme nts HEMOGLOBIN A1c (test code = 19809) 5.5 % 4.2-5.6 CBC W/AUTO DIFF WITH [id number] 03:42:47* Test Item Value Reference Range Interpretation [...] = 1065) 0.0 /100 WBC'S See_Comment [Automated [employer] ge] The system which generated this result [...] 0.00-0.10 ABS NUCLEATED RBCS (test code = 90899) 0.00 K/UL 0.00-0.11
[2023-11-04] MEDS ORDERED: ASPIRIN 81 MG CHEWABLE TABLET ONE (17:03)
[2023-11-04] MEDS ORDERED: HYDROCODONE/APAP 7.5/325 MG TAB ONE (17:04)
[2023-11-04 17:12] LABS: Absolute Basophils 0.1 K/uL (0-0.5); Absolute Eosinophils 0.1 K/uL (0-0.5); Absolute Lymphocytes (CBC) 4.4 K/uL (0.7-4.9); Absolute Monocytes 0.6 K/uL (0.1-1.3); Absolute Neutrophil 4.4 K/uL (1.8-8.0); Basophils % 0.5 % (0-1.3); Eosinophils % 1.2 % (0-4.4); Hemoglobin 13.9 g/dL (12.0-15.0); Lymphocytes % 46.5 % (15.3-44.8); MCH 24.9 pg (27.0-35.0); MCHC 32.4 g/dL (32.0-36.0); MCV 76.9 fL (80-100); MPV 8.9 fL (7.6-11.3); Neutrophils % 45.8 % (41.7-73.7); Platelets 357 thou/uL (152-406); RBC Red Blood Cell Count 5.59 M/uL (3.86-4.86)
[2023-11-04 17:18] LABS: PT Prothrombin Time 11.5 SECONDS (9.4-12.5); Protime INR 1.05
--- NOTE | 2023-11-04 17:29 | RAD REPORT ---
EXAM DESCRIPTION: Taylor Single View11/04/2023 5:19 pm CLINICAL HISTORY: Chest pain COMPARISON: August 2023 FINDINGS: The lungs appear clear of acute infiltrate. The heart is normal size IMPRESSION: No acute abnormalities displayed
--- NOTE | 2023-11-04 17:32 | RAD REPORT ---
EXAM DESCRIPTION: RAD - Hip Right 2 View - 11/04/2023 5:19 pm CLINICAL HISTORY: Right hip pain FINDINGS: Right hip prosthesis without evidence of loosening. No fracture or dislocation Osteoporosis
[2023-11-04 18:51] LABS: Albumin 3.7 g/dL (3.4-5.0); Albumin/Globulin Ratio 0.8 (1.1-1.8); Alkaline Phosphatase 65 U/L (45-117); Anion Gap 4.8 mEq/L (5.0-15.0); BUN Blood Urea Nitrogen 13 mg/dL (7-18); Bicarbonate 26 mEq/L (21-32); Bilirubin Total 0.3 mg/dL (0.2-1.0); Globulin 4.8 g/dL (2.3-3.5); Glomerular Filtration Rate 92 ml/min (=/>90); Glucose Level 92 mg/dL (74-106); Lipase 72 U/L (13-75); Magnesium 2.1 mg/dL (1.6-2.4); NT PRO-BNP 67 pg/mL (<125); Potassium 3.8 mEq/L (3.5-5.1); Protein, Total 8.5 g/dL (6.4-8.2); Sodium Level 139 mEq/L (136-145); Troponin High Sensitivity 3.2 pg/mL (<58.9)
[2023-11-04 18:53] LABS: ALT/SGPT < 14 U/L (13-56); AST/SGOT < 10 U/L (15-37); Bilirubin Direct < 0.2 mg/dL (0-0.2); Bilirubin Indirect, Calculated 0.1 mg/dL (0.2-0.8)
--- NOTE | 2023-11-04 19:03 | ER ---
Nurse's Notes [facility] Name: Korina Nolen Age: 53 yrs Sex: Female : 1970 Arrival Date: 11/04/2023 Time: 16:08 Bed 13 Private MD: Diagnosis: Chest pain, unspecified;Pain in right hip;Nausea Presentation: 11/03 16:15 Chief complaint: EMS states: Generalized pain: chest, back, abdomen and right hip pain. nj1 Had last pain pill two days ago and hurting since. Had r hip surgery on August. 16:15 Coronavirus screen: Vaccine status: Patient reports being unvaccinated. Ebola Screen: nj1 Patient denies travel to an Ebola-affected area in the 21 days before illness onset. Initial Sepsis Screen: Does the patient meet any 2 criteria? No. Patient's initial sepsis screen is negative. Does the patient have a suspected source of infection? No. Patient's initial sepsis screen is negative. Risk Assessment: Do you want to hurt yourself or someone else? Patient reports no desire to harm self or others. Onset of symptoms was October 2023. 16:15 Method Of Arrival: EMS: [facility] 16:15 Acuity: JULIANA 3 nj Historical: - Allergies: 18:09 No Known Allergies; nj1 - PMHx: 18:09 chronic hip pain; Bipolar disorder; Schizophrenia; nj1 - Immunization history:: Adult Immunizations unknown. - Infectious Disease History:: Denies. - Social history:: Smoking status: Patient reports the use of cigarette tobacco products, smokes one pack cigarettes per day. Screenin:15 [facility] ED Fall Risk Assessment (Adult) History of falling in the last 3 months, nj1 including since admission No falls in past 3 months (0 pts) Confusion or Disorientation No (0 pts) Intoxicated or Sedated No (0 pts) Impaired Gait Yes (1 pt) Mobility Assist Device Used No (0 pt) Altered Elimination No (0 pt) Score/Fall Risk Level 0 - 2 = Low Risk Oriented to surroundings, Maintained a safe environment, Hourly rounding (assess needs \T\ fall precautionary measures) done. Abuse screen: Denies threats or abuse. Denies injuries from another. Nutritional screening: No deficits noted. Tuberculosis screening: No symptoms or risk factors identified. Assessment: 16:15 General: Appears in no apparent distress. comfortable, Behavior is calm, cooperative, nj1 appropriate for age. 16:15 Pain: Complains of pain in chest and abdomen and right hip Pain currently is 8 out of nj1 10 on a pain scale. Neuro: Level of Consciousness is awake, alert, obeys commands, Oriented to person, place, time, situation. Cardiovascular: Reports chest pain, Patient's skin is warm and dry. Respiratory: Airway is patent Respiratory effort is even, unlabored. GI: Reports lower abdominal pain, upper abdominal pain, Patient currently denies nausea. Musculoskeletal: Reports pain in back and right hip. 17:38 Reassessment: Patient appears in no apparent distress at this time. Patient and/or nj1 family updated on plan of care and expected duration. Pain level reassessed. Patient is alert, oriented x 3, equal unlabored respirations, skin warm/dry/pink. 18:20 Reassessment: Patient appears in no apparent distress at this time. Patient and/or nj1 family updated on plan of care and expected duration. Pain level reassessed. Patient is alert, oriented x 3, equal unlabored respirations, skin warm/dry/pink. 19:22 Reassessment: Patient appears in no apparent distress at this time. Patient and/or jb4 family updated on plan of care and expected duration. Pain level reassessed. Patient is alert, oriented x 3, equal unlabored respirations, skin warm/dry/pink. Vital Signs: 16:15 BP 115 / 91; Pulse 87; Resp 16; Pulse Ox 99% on R/A; Weight 74.84 kg; Height 5 ft. 9 nj1 in. ; Pain 8/10; 18:20 BP 113 / 60; Pulse 74; Resp 18; Pulse Ox 98% ; nj1 16:15 Body Mass Index 24.37 (74.84 kg, 175.26 cm) nj1 16:15 Pain Scale: Adult [facility] ED Course: 16:15 Maintain EMS IV. Dressing intact. Site clean \T\ dry. Gauge \T\ site: 20 L FA. nj 1 16:15 Patient has correct armband on for positive identification. Bed in low position. Call al1 light in reach. Provided Education on: Call light, fall precautions. 16:20 Patient arrived in ED. [facility] 16:20 Marine Das PA-C is PHCP. sb4 16:20 Jose Waite DO is Attending Physician. sb4 16:40 Landy Mcnamara, RN is Primary Nurse. nj1 17:21 XRAY Chest (1 view) In Process Unspecified. EDMS 17:21 Hip Right 2 View XRAY In Process Unspecified. EDMS 17:51 Triage completed. nj1 18:08 Arm band placed on. nj1 18:08 Client placed on continuous cardiac and pulse oximetry monitoring. NIBP monitoring nj1 applied. surveillance monitor on. 19:06 Report given to Maria De Jesus UMANA. nj1 19:22 No provider procedures requiring assistance completed. IV discontinued, intact, jb4 bleeding controlled, No redness/swelling at site. Pressure dressing applied. Administered Medications: 17:25 Drug: Aspirin PO Chewable Tablet 324 mg PO once; 81 mg tablets x 4 Route: PO; nj1 17:25 Drug: Hydrocodone-Acetaminophen PO (7.5 mg-325 mg) 1 tabs PO once Route: PO; nj1 Medication: 19:22 VIS not applicable for this client. jb4 Outcome: 19:02 Discharge ordered by MD. sb4 19:22 Discharged to home ambulatory, jb4 19:22 Condition: stable 19:22 Discharge instructions given to patient, Instructed on discharge instructions, follow up and referral plans. no drinking with medication, no driving heavy equipment, medication usage, Demonstrated understanding of instructions, follow-up care, medications, Prescriptions given X 2, 19:23 Patient left the ED. jb4 Signatures: Dispatcher [employer] Pa Meek RN RN jb4 Marine Das PA-C PA-C sb4 Landy Mcnamara, DONG RN nj1
--- NOTE | 2023-11-04 19:03 | EDPHYS ---
Physician Documentation [facility] Name: Korina Nolen Age: 53 yrs Sex: Female : 1970 Arrival Date: 11/04/2023 Time: 16:08 Bed 13 Private MD: ED Physician Jose Waite HPI: 11/03 16:34 This 53 yrs old Black Female presents to ER via Unassigned with complaints of chest sb4 pain, abdominal pain, hip pain. 16:34 patient reports pain in the center of her chest and her epigastric region that began sb4 this morning. additionally, she reports right hip pain that is chronic secondary to her hip replacement surgery done 2 months ago. she denies any cardiac history. endorses mild nausea and shortness of breath but no radiation or diaphoresis. no history of HTN or CAD, but states it does run in her family. Historical: - Allergies: 18:09 No Known Allergies; nj1 - PMHx: 18:09 chronic hip pain; Bipolar disorder; Schizophrenia; nj1 - Immunization history:: Adult Immunizations unknown. - Infectious Disease History:: Denies. - Social history:: Smoking status: Patient reports the use of cigarette tobacco products, smokes one pack cigarettes per day. ROS: 16:34 Constitutional: Negative for fever, chills, and weight loss, sb4 16:34 Cardiovascular: Positive for chest pain, 16:34 Abdomen/GI: Positive for abdominal pain, nausea, 16:34 MS/extremity: Positive for pain, of the right hip, 16:34 All other systems are negative, Exam: 16:36 Constitutional: This is a well developed, well nourished patient who is awake, alert, sb4 and in no acute distress. Head/Face: Normocephalic, atraumatic. Eyes: Extra-ocular motions intact. Periorbital areas with no swelling, redness, or edema. ENT: Mucous membranes moist. Cardiovascular: Regular rate and rhythm with a normal S1 and S2. Respiratory: Lungs have equal breath sounds bilaterally, clear to auscultation and percussion. No rales, rhonchi or wheezes noted. No increased work of breathing, no retractions or nasal flaring. Abdomen/GI: Soft, non-tender, no distension. Skin: Warm, dry with normal turgor. Normal color with no rashes, no lesions, and no evidence of cellulitis. Vital Signs: 16:15 BP 115 / 91; Pulse 87; Resp 16; Pulse Ox 99% on R/A; Weight 74.84 kg; Height 5 ft. 9 nj1 in. ; Pain 8/10; 18:20 BP 113 / 60; Pulse 74; Resp 18; Pulse Ox 98% ; nj1 16:15 Body Mass Index 24.37 (74.84 kg, 175.26 cm) nj1 16:15 Pain Scale: Adult nj1 MDM: 16:23 Patient medically screened. sb4 19:01 The patient was given aspirin in the Emergency Department. Data reviewed: vital signs, sb4 nurses notes, EMS record, lab test result(s), EKG, radiologic studies, and as a result, I will discharge patient. Consideration of Admission/Observation Escalation of care including admission/observation considered. Scoring Tools HEART Score: History: ECG: Age: Risk Factors: 1 or 2 risk factors (1), Troponin: Total Score = 2. Counseling: I had a detailed discussion with the patient and/or guardian regarding the historical points, exam findings, and any diagnostic results supporting the discharge/admit diagnosis, lab results, radiology results, the need for outpatient follow up, a solderer dipper, to return to the emergency department if symptoms worsen or persist or if there are any questions or concerns that arise at home. Special discussion: Based on the patient's history, exam, and Dx evaluation, there is no indication for emergent intervention or inpatient Tx. It is understood by the patient/guardian that if the Sx's persist or worsen they need to return immediately for re-evaluation. 11/03 16:32 Order name: Basic Metabolic Panel; Complete Time: 18:56 sb4 11/03 16:32 Order name: CBC with Diff; Complete Time: 17:14 sb4 11/03 16:32 Order name: LFT's; Complete Time: 18:56 sb4 11/03 16:32 Order name: Magnesium; Complete Time: 18:56 sb4 11/03 16:32 Order name: NT PRO-BNP; Complete Time: 18:56 sb4 11/03 16:32 Order name: PT-INR; Complete Time: 17:22 sb4 11/03 16:32 Order name: Troponin HS; Complete Time: 18:56 sb4 11/03 16:33 Order name: Lipase; Complete Time: 18:56 sb4 11/03 16:32 Order name: XRAY Chest (1 view); Complete Time: 17:37 sb4 11/03 16:32 Order name: Hip Right 2 View XRAY; Complete Time: 17:35 sb4 11/03 16:32 Order name: Cardiac monitoring; Complete Time: 17:39 sb4 11/03 16:32 Order name: EKG - Nurse/Tech; Complete Time: 17:31 sb4 11/03 16:32 Order name: IV Saline Lock; Complete Time: 17:31 sb4 11/03 16:32 Order name: Labs collected and sent; Complete Time: 17:31 sb4 11/03 16:32 Order name: O2 Per Protocol; Complete Time: 17:31 sb4 11/03 16:32 Order name: O2 Sat Monitoring; Complete Time: 17:31 sb4 11/03 17:19 Order name: Labs - recollect needed: recollect green top; Complete Time: 18:32 bd EC:38 Rate is 777 beats/min. Rhythm is regular, Normal Sinus Rhythm. UT interval is normal at sb4 160 msec. QRS interval is normal at 98 msec. QT interval is normal at 380 msec. No Q waves. T waves are Normal. No ST changes noted. Clinical impression: Normal ECG and No evidence of ischemia. Interpreted by me. Reviewed by me. Administered Medications: 17:25 Drug: Aspirin PO Chewable Tablet 324 mg PO once; 81 mg tablets x 4 Route: PO; nj1 17:25 Drug: Hydrocodone-Acetaminophen PO (7.5 mg-325 mg) 1 tabs PO once Route: PO; nj1 Disposition: 16:53 I was immediately available on-site in the Emergency Department for consultation in the ms3 care of the patient. Disposition Summary: 11/04/23 19:02 Discharge Ordered Notes: Location: Home sb4 Problem: new sb4 Symptoms: have improved sb4 Condition: Stable sb4 Diagnosis - Chest pain, unspecified sb4 - Pain in right hip sb4 - Nausea sb4 Followup: sb4 - With: Emergency Department - When: As needed - Reason: Trouble breathing, Worsening of condition Discharge Instructions: - Discharge Summary Sheet sb4 - Nonspecific Chest Pain, Adult, [id number] sb4 - Hip Pain sb4 Forms: - Prescription Opioid Use sb4 - Patient Portal Instructions sb4 - Leadership Thank You Letter sb4 Prescriptions: - Zofran 4 mg Oral Tablet - take 1 tablet ORAL route every 12 hours As needed; 20 tablet; Refills: 0, sb4 Product Selection Permitted - Tramadol 50 mg Oral Tablet - take 1 tablet ORAL route every 8 hours as needed; 12 tablet; Refills: 0, sb4 Product Selection Permitted Signatures: Dispatcher [employer] EDMS Luna Allen bd Jose Waite, DO ms3 Marine Das PAGemmaC PAGemmaC sb4 Landy Mcnamara, RN RN nj1 Corrections: (The following items were deleted from the chart) 16:33 16:33 BASIC METABOLIC PANEL+C.LAB.BRZ ordered. EDMS EDMS 16:33 16:33 CBC+H.LAB.BRZ ordered. EDMS EDMS 16:33 16:33 HEPATIC FUNCTION+C.LAB.BRZ ordered. EDMS EDMS 16:33 16:33 MAGNESIUM+C.LAB.BRZ ordered. EDMS EDMS 16:33 16:33 PROBNP+C.LAB.BRZ ordered. EDMS EDMS 16:33 16:33 PROTIME (+INR)+COAG.LAB.BRZ ordered. EDMS EDMS 16:33 16:33 Troponin High Sensitivity+C.LAB.BRZ ordered. EDMS EDMS 16:33 16:33 Chest Single View+RAD.RAD.BRZ ordered. EDMS EDMS 16:33 16:33 Hip Right 2 View+RAD.RAD.BRZ ordered. EDMS EDMS 16:33 16:33 LIPASE+C.LAB.BRZ ordered. EDMS EDMS
[2023-11-04 20:22] VITALS: BP 113/60; O2SAT 98
--- NOTE | 2023-11-05 13:50 | EKG ---
Test Date: 2023-11-04 Test Time: 17:28:31 Driver Medic: KASSANDRA MEASUREMENT RESULTS: Intervals: Rate: 77 CT: 160 QRSD: 98 QT: 380 QTc: 430 Custar: P: 69 CT: 160 QRS: 64 T: 50 INTERPRETIVE STATEMENTS: Normal sinus rhythm Normal ECG Compared to ECG 07/30/2023 12:48:10 No significant changes Electronically Signed On 11-05-23 13:48:05 CDT by Nguyễn Kelley
== END 2023-11-04 19:23 | disposition home or self-care (01) ==
LOC: ER 16:08
DX: R07.9 Chest pain, unspecified (principal); M25.551 Pain in right hip; R11.0 Nausea; F17.210 Nicotine dependence, cigarettes, uncomplicated
CPT/HCPCS: 36415; 71045; 80048; 80076; 83690; 83735; 83880; 84484; 85025; 85610; 93005

== ENCOUNTER 2025-03-01 05:56 | Emergency (ER) | payer OTHER ==
[2025-03-01 06:37] LABS: Absolute Lymphocytes (CBC) 3.1 K/uL (0.7-4.9); Hematocrit 43.1 % (36.0-45.0); Hemoglobin 14.1 g/dL (12.0-15.0); MCH 24.5 pg (27.0-35.0); MCHC 32.6 g/dL (32.0-36.0); MCV 75.1 fL (80-100); MPV 7.7 fL (7.6-11.3); Nucleated RBC Absolute Count 0.0 (0-0); Nucleated Red Blood Cells % 0.1 % (0-0); RBC Red Blood Cell Count 5.74 M/uL (3.86-4.86); White Blood Count 9.50 thou/uL (4.3-10.9)
[2025-03-01] MEDS ORDERED: NA CHLORIDE 0.9% 500 ML ONE (06:38)
[2025-03-01] MEDS ORDERED: DIPHENHYDRAMINE 50 MG/ML VIAL ONE (06:38)
[2025-03-01] MEDS ORDERED: METOCLOPRAMIDE 10 MG/2mL INJ ONE (06:38)
[2025-03-01] MEDS ORDERED: KETOROLAC 30 MG/ML INJ ONE (06:38)
[2025-03-01 07:10] LABS: ALT/SGPT 18.0 U/L (13-56); AST/SGOT 13.0 U/L (15-37); Albumin 3.4 g/dL (3.4-5.0); Albumin/Globulin Ratio 0.6 (1.1-1.8); Alkaline Phosphatase 71.0 U/L (45-117); Anion Gap 8.7 mEq/L (5.0-15.0); BUN Blood Urea Nitrogen 9.0 mg/dL (7-18); Globulin 5.3 g/dL (2.3-3.5); Glucose Level 104.0 mg/dL (74-106); Potassium 2.7 mEq/L (3.5-5.1)
[2025-03-01] MEDS ORDERED: POTASSIUM 25 MEQ EFFERV TAB ONE (07:31)
--- NOTE | 2025-03-01 07:36 | RAD REPORT ---
EXAM: CT brain without contrast HISTORY: Headache COMPARISON: 2023 TECHNIQUE: Multiple contiguous axial images were obtained and a CT of the brain without contrast.. Sagittal and coronal reconstruction performed. Automated exposure control, adjustment of the mA and/or kV according to patient size, and/or iterative reconstruction. Unless otherwise specified, incidental f indings do not require dedicated imaging follow-up FINDINGS: An intracranial bleed is not seen There may be right exophthalmos. Ventricles are normal caliber No extra-axial fluid collection noted No significant hypodensity within the brain No fluid within the visualized sinuses or mastoids noted. IMPRESSION: No acute intracranial abnormality noted. Possible right exophthalmos If the patient continues to have symptoms to suggest an acute intracranial abnormality then MRI of th e brain would be recommended.
--- NOTE | 2025-03-01 08:11 | ER ---
Nurse's Notes [facility] Name: Korina Nolen Age: 54 yrs Sex: Female : 1970 Arrival Date: 03/01/2025 Time: 05:56 Bed 5 Private MD: Diagnosis: Headache;Elevated blood-pressure reading, without diagnosis of hypertension;Hypokalemia Presentation: 03/01 06:18 Chief complaint: Patient states: BILATERAL EYE THROBBING AND PAIN FOR 4 MONTHS. GOT jj7 WORSE YESTERDAY. Coronavirus screen: At this time, the client does not indicate any symptoms associated with coronavirus-19. Ebola Screen: No symptoms or risks identified at this time. Mechanism of Injury: No Mechanism of Injury. The patient denies any loss of vision. Initial Sepsis Screen: Does the patient meet any 2 criteria? No. Patient's initial sepsis screen is negative. Does the patient have a suspected source of infection? No. Patient's initial sepsis screen is negative. Risk Assessment: Do you want to hurt yourself or someone else? Patient reports no desire to harm self or others. Onset of symptoms was February 28, 2025. 06:18 [facility] 06[facility]18 Acuity: JULIANA 3 jj7 Triage Assessment: 06:19 General: Appears in no apparent distress. uncomfortable, Behavior is calm, cooperative, jj7 appropriate for age. Pain: Complains of pain in right eye and left eye. EENT: Reports pain in right eye and left eye. Neuro: Level of Consciousness is awake, alert, obeys commands, Oriented to person, place, time, situation, Appropriate for age Reports headache. 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 - Infectious Disease History:: Denies. - Social history:: Smoking status: Patient reports the use of cigarette tobacco products, cigars, Patient uses Patient/guardian denies using alcohol, street drugs, IV drugs. - Family history:: not pertinent. Screenin:38 [facility] ED Fall Risk Assessment (Adult) History of falling in the last 3 months, ap3 including since admission No falls in past 3 months (0 pts) Confusion or Disorientation No (0 pts) Intoxicated or Sedated No (0 pts) Impaired Gait No (0 pts) Mobility Assist Device Used No (0 pt) Altered Elimination No (0 pt) Score/Fall Risk Level 0 - 2 = Low Risk Oriented to surroundings, Maintained a safe environment, Educated pt \T\ family on fall prevention, incl call for assistance when getting out of bed, Assessed \T\ reinforced patient's understanding of fall precautions, Hourly rounding (assess needs \T\ fall precautionary measures) done, Used ambulatory aids as needed (educated on \T\ assisted with). Abuse screen: Denies threats or abuse. Nutritional screening: No deficits noted. Tuberculosis screening: No symptoms or risk factors identified. Assessment: 06:35 General: Appears in no apparent distress. uncomfortable, Behavior is calm, cooperative. kd3 Pain: Complains of pain in left eye and right eye. Neuro: Level of Consciousness is awake, alert, obeys commands, Oriented to person, place, time, situation. Cardiovascular: Capillary refill < 3 seconds Patient's skin is warm and dry. Respiratory: Airway is patent Trachea midline Respiratory effort is even, unlabored, Respiratory pattern is regular, symmetrical. 07:40 Reassessment: Patient and/or family updated on plan of care and expected duration. Pain ap3 level reassessed. Patient is alert, oriented x 3, equal unlabored respirations, skin warm/dry/pink. Patient states feeling better. Patient states symptoms have improved. Neuro: Level of Consciousness is awake, alert, obeys commands, Oriented to person, place, time, situation, Appropriate for age. Cardiovascular: Patient's skin is warm and dry. Respiratory: Airway is patent Respiratory effort is even, unlabored, Respiratory pattern is regular, symmetrical. Vital Signs: 06:18 BP 166 / 127; Pulse 93; Resp 17; Temp 98; Pulse Ox 100% ; Weight 79.38 kg; Height 5 ft. jj7 8 in. ; 07:29 BP 166 / 113; Pulse 76; Resp 17; Pulse Ox 100% on R/A; ap3 08:39 BP 148 / 117; Pulse 78; Resp 14; Pulse Ox 100% on R/A; ap3 06:18 Body Mass Index 26.61 (79.38 kg, 172.72 cm) jj7 Samantha Coma Score: 06:48 Eye Response: spontaneous(4). Motor Response: obeys commands(6). Verbal Response: sp4 oriented(5). Total: 15. ED Course: 05:58 Patient arrived in ED. mr 06:15 Coleman Dsouza MD is Attending Physician. sp4 06:19 Triage completed. jj7 06:19 Arm band placed on right wrist. Patient placed in an exam room, on a stretcher. jj7 06:20 Rochelle Sheikh, DONG is Primary Nurse. kd3 06:29 Inserted saline lock: 20 gauge in right antecubital area, using aseptic technique. kd3 Blood collected. Flushed with 10 mL NS. 06:30 CBC with Diff Sent. kd3 06:30 CMP Sent. kd3 06:48 CMP Sent. kd3 07:22 CT Head Brain wo Cont In Process Unspecified. EDMS 07:24 Attending Physician role handed off by Coleman Dsouza MD ms3 07:24 Jose Waite DO is Attending Physician. ms3 08:10 Nguyễn Kelley MD is Referral Physician. ms3 08:13 Edgar Arce MD is Referral Physician. ms3 08:38 No provider procedures requiring assistance completed. IV discontinued, intact, ap3 bleeding controlled, No redness/swelling at site. Pressure dressing applied. 08:39 Patient has correct armband on for positive identification. Provided Education on: ap3 discharge instructions. Administered Medications: 06:48 Drug: metoCLOPramide IVP 10 mg IVP once; over 1 to 2 minutes Route: IVP; Site: right kd3 antecubital; 07:40 Follow up: Response: No adverse reaction ap3 06:48 Drug: Ketorolac IVP 30 mg IVP once Route: IVP; Site: right antecubital; kd3 07:40 Follow up: Response: No adverse reaction; Pain is decreased ap3 06:48 Drug: diphenhydrAMINE IVP 25 mg IVP once Route: IVP; Site: right antecubital; kd3 07:40 Follow up: Response: No adverse reaction; Pain is decreased ap3 06:48 Drug: NS 0.9% IV 500 ml 500 ml IV at 1 bolus once; to be given as a bolus over 30 kd3 minutes Volume: 500 ml; Route: IV; Rate: 1 bolus; Site: right antecubital; 08:40 Follow up: IV Status: Completed infusion; IV Intake: 500ml ap3 06:49 Drug: cloNIDine PO 0.1 mg PO once Route: PO; kd3 07:41 Follow up: Response: No adverse reaction; Blood pressure is lowered ap3 07:40 Drug: Potassium PO Effervescent Tablet 50 mEq PO once; dissolve in 4 ounces of water or ap3 juice Route: PO; 08:38 Follow up: Response: No adverse reaction ap3 Medication: 08:39 VIS not applicable for this client. ap3 Intake: 08:40 IV: 500ml; Total: 500ml. ap3 Outcome: 08:11 Discharge ordered by . ms3 08:14 Discharge ordered by MD. ms3 08:38 Discharged to home ambulatory, ap3 08:38 Condition: good 08:38 Discharge instructions given to patient, family, Instructed on discharge instructions, follow up and referral plans. medication usage, Demonstrated understanding of instructions, follow-up care, medications, Prescriptions given X 1, 08:39 Patient left the ED. ap3 Signatures: Dispatcher [employer] EDTN Jennifer Crespo, Reg Reg mr Gin Rosales, RN RN ap3 Jose Waite DO DO ms3 Rochelle Sheikh RN RN kd3 Anisha Simon RN RN jj7 Coleman Dsouza MD MD sp4
--- NOTE | 2025-03-01 08:11 | EDPHYS ---
Physician Documentation [facility] Name: Korina Nolen Age: 54 yrs Sex: Female : 1970 Arrival Date: 03/01/2025 Time: 05:56 Bed 5 Private MD: ED Physician Jose Waite HPI: 03/01 06:15 This 54 yrs old Black Female presents to ER via Unassigned with complaints of Eye Pain. sp4 06:48 Patient presents with several months of headache and bilateral eye pain. Patient sp4 reports that the light hurts her eyes. 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 - Infectious Disease History:: Denies. - Social history:: Smoking status: Patient reports the use of cigarette tobacco products, cigars, Patient uses Patient/guardian denies using alcohol, street drugs, IV drugs. - Family history:: not pertinent. ROS: 06:48 Constitutional: Negative for fever, chills, and weight loss, positive for bilateral sp4 eye pain, positive for headache frontal and posterior head 06:48 All other systems are negative, Exam: 06:48 Visual Acuity: I have reviewed the nursing documentation. sp4 06:48 Constitutional: This is a well developed, well nourished patient who is awake, alert, and in no acute distress. Head/Face: Normocephalic, atraumatic. Eyes: Pupils equal round and reactive to light, extra-ocular motions intact. Lids and lashes normal. Conjunctiva and sclera are not injected. Cornea within normal limits. Periorbital areas with no swelling, redness, or edema. ENT: Nares patent. No nasal discharge, no septal abnormalities noted. Tympanic membranes are normal and external auditory canals are clear. Oropharynx with no redness, swelling, or masses, exudates, or evidence of obstruction, uvula midline. Mucous membranes moist. Neck: Trachea midline, no thyromegaly or masses palpated, and no cervical lymphadenopathy. Supple, full range of motion without nuchal rigidity, or vertebral point tenderness. Chest/axilla: Normal chest wall appearance and motion. Nontender with no deformity. No lesions are appreciated. Cardiovascular: Regular rate and rhythm with a normal S1 and S2. No gallops, murmurs, or rubs. No pulse deficits. Respiratory: Lungs have equal breath sounds bilaterally, clear to auscultation and percussion. No rales, rhonchi or wheezes noted. No increased work of breathing, no retractions or nasal flaring. Abdomen/GI: Soft, with normal bowel sounds. No distension or tympany. No guarding or rebound. No evidence of tenderness throughout. Back: No spinal tenderness. No costovertebral tenderness. Skin: Warm, dry with normal turgor. Normal color with no rashes, no lesions, and no evidence of cellulitis. MS/ Extremity: Pulses equal, no cyanosis. Neurovascular intact. Full, normal range of motion. Neuro: Awake and alert, GCS 15, oriented to person, place, time, and situation. Cranial nerves II-XII grossly intact. Motor strength 5/5 in all extremities. Sensory grossly intact. Psych: Awake, alert, with orientation to person, place and time. Behavior, mood, and affect are within normal limits Vital Signs: 06:18 BP 166 / 127; Pulse 93; Resp 17; Temp 98; Pulse Ox 100% ; Weight 79.38 kg; Height 5 ft. jj7 8 in. ; 07:29 BP 166 / 113; Pulse 76; Resp 17; Pulse Ox 100% on R/A; ap3 08:39 BP 148 / 117; Pulse 78; Resp 14; Pulse Ox 100% on R/A; ap3 06:18 Body Mass Index 26.61 (79.38 kg, 172.72 cm) [facility] Samantha Coma Score: 06:48 Eye Response: spontaneous(4). Motor Response: obeys commands(6). Verbal Response: sp4 oriented(5). Total: 15. MDM: 07:00 Transition of care: Care assumed from Coleman Dsouza MD. ms3 07:05 Differential diagnosis: Acute glaucoma in Ultraviolet keratitis in. Data reviewed: sp4 vital signs, nurses notes, lab test result(s), radiologic studies, CT scan. Consideration of Admission/Observation Escalation of care including admission/observation considered. Transition of care: After a detail discussion of the patient's case, care is transferred to Jose Waite DO. 07:24 Medical Screening Exam initiated ms3 08:13 I considered the following discharge prescriptions or medication management in the ms3 emergency department Medications were administered in the Emergency Department. See MAR. 08:16 Independent interpretation of the following test(s) in the Emergency Department CT ms3 Scan: My interpretation is CT head without contrast images reviewed by me do not reveal ICH. Counseling: I had a detailed discussion with the patient and/or guardian regarding the historical points, exam findings, and any diagnostic results supporting the discharge/admit diagnosis, the presence of at least one elevated blood pressure reading (>120/80) during this emergency department visit, lab results, radiology results, the need for outpatient follow up, to return to the emergency department if symptoms worsen or persist or if there are any questions or concerns that arise at home. Response to treatment: the patient's symptoms have markedly improved after treatment. Special discussion: I discussed with the patient/guardian in detail that at this point there is no indication for admission to the hospital. It is understood, however, that if the symptoms persist or worsen the patient needs to return immediately for re-evaluation. ED course: On reevaluation patient's symptoms improved, patient alert and orient x 4, no apparent distress, nontoxic-appearing, speaking full sentences. Patient follow-up with Dr. Arce regarding her headache and her primary care physician regarding hypokalemia. Patient understands agrees with plan. All questions were answered. Return precautions were discussed include worsening symptoms, or any other concerns.. 03/01 06:22 Order name: CBC with Diff; Complete Time: 07:24 sp4 03/01 06:22 Order name: CMP; Complete Time: 07:24 sp4 03/01 06:21 Order name: CT Head Brain wo Cont; Complete Time: 07:38 sp4 03/01 06:22 Order name: IV Saline Lock; Complete Time: 06:30 sp4 03/01 06:22 Order name: Labs collected and sent; Complete Time: 06:30 sp4 Administered Medications: 06:48 Drug: metoCLOPramide IVP 10 mg IVP once; over 1 to 2 minutes Route: IVP; Site: right kd3 antecubital; 07:40 Follow up: Response: No adverse reaction ap3 06:48 Drug: Ketorolac IVP 30 mg IVP once Route: IVP; Site: right antecubital; kd3 07:40 Follow up: Response: No adverse reaction; Pain is decreased ap3 06:48 Drug: diphenhydrAMINE IVP 25 mg IVP once Route: IVP; Site: right antecubital; kd3 07:40 Follow up: Response: No adverse reaction; Pain is decreased ap3 06:48 Drug: NS 0.9% IV 500 ml 500 ml IV at 1 bolus once; to be given as a bolus over 30 kd3 minutes Volume: 500 ml; Route: IV; Rate: 1 bolus; Site: right antecubital; 08:40 Follow up: IV Status: Completed infusion; IV Intake: 500ml ap3 06:49 Drug: cloNIDine PO 0.1 mg PO once Route: PO; kd3 07:41 Follow up: Response: No adverse reaction; Blood pressure is lowered ap3 07:40 Drug: Potassium PO Effervescent Tablet 50 mEq PO once; dissolve in 4 ounces of water or ap3 juice Route: PO; 08:38 Follow up: Response: No adverse reaction ap3 Disposition: 23:54 Chart complete. sp4 Disposition Summary: 03/01/25 08:14 Discharge Ordered Notes: Location: Home(03/01/25 08:14) ms3 Condition: Stable(03/01/25 08:14) ms3 Diagnosis - Headache ms3 - Elevated blood-pressure reading, without diagnosis of hypertension(03/01/25 08:14) ms3 - Hypokalemia ms3 Followup: ms3 - With: Edgar Arce MD - When: 2 - 3 days - Reason: Recheck today's complaints Followup: ms3 - With: Private Physician - When: 2 - 3 days - Reason: Recheck today's complaints Discharge Instructions: - Discharge Summary Sheet ms3 - Potassium Content of Foods ms3 - General Headache Without Cause ms3 - Hypertension, Adult ms3 - Hypertension, Adult, [id number] ms3 - Hypokalemia ms3 Forms: - Medication Reconciliation Form ms3 - Antibiotic Education ms3 - Prescription Opioid Use ms3 - Patient Portal Instructions ms3 - Leadership Thank You Letter ms3 Prescriptions: - potassium chloride 20 mEq Oral tablet, extended release - take 1 tablet ORAL route daily; 5 tablet; Refills: 0, Product Selection ms3 Permitted Signatures: Dispatcher [employer] EDMS Gin Rosales, RN RN ap3 Jose Waite DO DO ms3 Rochelle Sheikh RN RN kd3 Anisha Simon RN RN jj7 Coleman Dsouza MD MD sp4 Corrections: (The following items were deleted from the chart) 06: 06:22 CBC+H.LAB.BRZ ordered. EDMS EDMS 06:22 06:22 COMPREHENSIVE METABOLIC PANEL+C.LAB.BRZ ordered. EDMS EDMS 08:13 08:11 Home ms3 ms3 08:13 08:11 Stable ms3 ms3 08:13 08:11 Chest pain, unspecified ms3 ms3 08:13 08:11 Abdominal pain, Generalized ms3 ms3 08:13 08:11 Elevated blood-pressure reading, without diagnosis of hypertension ms3 ms3
[2025-03-01 14:59] VITALS: TEMP 98; O2SAT 100
[2025-03-01 15:23] VITALS: BP 148/117
== END 2025-03-01 08:39 | disposition home or self-care (01) ==
LOC: ER 05:56
DX: R51.9 Headache, unspecified (principal); R03.0 Elevated blood-pressure reading, without diagnosis of hypertension; E87.6 Hypokalemia; Z72.0 Tobacco use
CPT/HCPCS: 85025; 36415; 80053; 70450; J1885; J2765; J1200; J7040; 96361; 96374; 96375; 99284